=== PATIENT | female | born 1970 | race Caucasian/White ===

== ENCOUNTER 2024-09-19 17:39 | Emergency (ER) | payer OTHER, SELFPAY ==
--- NOTE | ~2024-09-19 | CT_ITS ---
EXAMINATION: CT ANGIOGRAM OF THE CHEST, ABDOMEN AND PELVIS WITHOUT AND WITH CONTRAST CLINICAL INFORMATION: Abdominal pain COMPARISON: None. TECHNIQUE: Multidetector volumetric CT imaging of the chest, abdomen, and pelvis was performed before and after the administration of 50 mL of Omnipaque 350 intravenous contrast without immediate adverse reactions. 3D POSTPROCESSING: Multiple 3-D angiographic images were processed from the initial data set by the [facility] on an independent workstation under concurrent physician supervision. DOSE LOWERING TECHNIQUES: This CT examination was performed using dose optimization techniques as appropriate, variously including the following: - Automated exposure control - Adjustment of mA and/or kV according to patient size (this includes techniques or standardized protocols for targeted exams where dose is matched to indication/reason for exam; i.e. extremities or head) - Use of iterative reconstruction technique DLP: 858 mGy-cm. FINDINGS: VASCULAR: AORTA: Normal in caliber, no dissection or aneurysm. CELIOMESENTERIC ARTERIES: Patent RENAL ARTERIES: Patent RIGHT ILIOFEMORAL ARTERIES: Patent LEFT ILIOFEMORAL ARTERIES: Patent NONVASCULAR: LUNGS: Left lower lobe consolidation and tree in bud opacities. MEDIASTINUM: The mediastinum is normal. PLEURA: There is no pleural effusion. No pleural mass or thickening. LIVER, GALLBLADDER, AND BILIARY TREE: The liver is normal in size, shape, and attenuation. No focal hepatic lesion or biliary ductal dilatation is present. The gallbladder is unremarkable with no evidence of radiopaque gallstones, gallbladder wall thickening, or obvious pericholecystic inflammatory changes. PANCREAS: Unremarkable. SPLEEN: Unremarkable. ADRENAL GLANDS: Unremarkable. KIDNEYS AND URETERS: The kidneys are normal in size, shape, and attenuation. No hydronephrosis, hydroureter, or calculi seen. No perinephric stranding. BLADDER: Unremarkable. GASTROINTESTINAL TRACT: The small and large bowel are unremarkable. The appendix is unremarkable. ABDOMINAL WALL: No significant hernia is appreciated. LYMPH NODES: Normal. PELVIC VISCERA: Unremarkable. OSSEOUS STRUCTURES: Unremarkable. CT/CT angio chest aorta IMPRESSION: No significant abnormality. Fleischner guidelines were followed. Electronically signed by: Jeannine Spicer MD 09/19/2024 08:42 PM EDT
--- NOTE | ~2024-09-19 | CT_ITS ---
EXAMINATION: CT ANGIOGRAM OF THE CHEST, ABDOMEN AND PELVIS WITHOUT AND WITH CONTRAST CLINICAL INFORMATION: Abdominal pain COMPARISON: None. TECHNIQUE: Multidetector volumetric CT imaging of the chest, abdomen, and pelvis was performed before and after the administration of 50 mL of Omnipaque 350 intravenous contrast without immediate adverse reactions. 3D POSTPROCESSING: Multiple 3-D angiographic images were processed from the initial data set by the [facility] on an independent workstation under concurrent physician supervision. DOSE LOWERING TECHNIQUES: This CT examination was performed using dose optimization techniques as appropriate, variously including the following: - Automated exposure control - Adjustment of mA and/or kV according to patient size (this includes techniques or standardized protocols for targeted exams where dose is matched to indication/reason for exam; i.e. extremities or head) - Use of iterative reconstruction technique DLP: 858 mGy-cm. FINDINGS: VASCULAR: AORTA: Normal in caliber, no dissection or aneurysm. CELIOMESENTERIC ARTERIES: Patent RENAL ARTERIES: Patent RIGHT ILIOFEMORAL ARTERIES: Patent LEFT ILIOFEMORAL ARTERIES: Patent NONVASCULAR: LUNGS: Left lower lobe consolidation and tree in bud opacities. MEDIASTINUM: The mediastinum is normal. PLEURA: There is no pleural effusion. No pleural mass or thickening. LIVER, GALLBLADDER, AND BILIARY TREE: The liver is normal in size, shape, and attenuation. No focal hepatic lesion or biliary ductal dilatation is present. The gallbladder is unremarkable with no evidence of radiopaque gallstones, gallbladder wall thickening, or obvious pericholecystic inflammatory changes. PANCREAS: Unremarkable. SPLEEN: Unremarkable. ADRENAL GLANDS: Unremarkable. KIDNEYS AND URETERS: The kidneys are normal in size, shape, and attenuation. No hydronephrosis, hydroureter, or calculi seen. No perinephric stranding. BLADDER: Unremarkable. GASTROINTESTINAL TRACT: The small and large bowel are unremarkable. The appendix is unremarkable. ABDOMINAL WALL: No significant hernia is appreciated. LYMPH NODES: Normal. PELVIC VISCERA: Unremarkable. OSSEOUS STRUCTURES: Unremarkable. CT/CT angio abdomen pelvis IMPRESSION: No significant abnormality. Fleischner guidelines were followed. Electronically signed by: Jeannine Spicer MD 09/19/2024 08:42 PM EDT
--- NOTE | 2024-09-19 17:43 | ECG_ITS ---
Test Reason : chest pain Blood Pressure : / mmHG Vent. Rate : 072 BPM Atrial Rate : 072 BPM P-R Int : 136 ms QRS Dur : 086 ms QT Int : 358 ms P-R-T Axes : -16 002 028 degrees QTc Int : 392 ms Poor data quality Normal sinus rhythm with sinus arrhythmia Low voltage QRS Borderline ECG No previous ECGs available Referred By: Generic ED Physician Electronically Signed By:Christo Phoenix
[2024-09-19 17:50] VITALS: BP 180/93; PULSE 96; RESP 25; TEMP 36.9; O2SAT 95; BMI 39.5
[2024-09-19 18:06] LABS: MANUAL DIFF FLAG NO
[2024-09-19 18:08] LABS: Basophils Percent Auto 0.3 % (0-2); Hematocrit 42.8 % (37.0-47.0); Hemoglobin 14.8 g/dl (12.0-16.0); Imm Gran Abs Auto 0.05 X10*3/uL (0.00-0.03); Imm Gran Pct Auto 0.4 % (0.0-0.4); Lymphocytes Absolute Auto 2.2 X10*3/uL (1.2-4.9); Lymphocytes Percent Auto 18.6 % (20-40); Mean Corpuscular HGB Conc 34.6 g/dl (31.0-35.0); Mean Corpuscular Hemoglobin 29.9 pg (27.0-33.0); Mean Corpuscular Volume 86.5 fL (80.0-98.0); Mean Platelet Volume 8.9 fL (9.4-12.3); Monocytes Absolute Auto 1.1 X10*3/uL (0.1-1.2); Monocytes Percent Auto 9.7 % (2-11); Neutrophils Absolute Auto 8.3 x10*3/uL (2.0-8.3); Platelet Count 537 X10*3/uL (160-400); Red Blood Count 4.95 X10*6/uL (4.20-5.50); Red Cell Distribution Width 13.7 % (11.0-16.0); White Blood Count 11.7 X10*3/uL (4.8-10.8)
[2024-09-19] MEDS: Morphine Sulfate 4 MG/ML CARTRIDGE IVPUSH ×2 (18:25→21:33)
[2024-09-19 18:29] LABS: Anion Gap 18 (12-20)
--- NOTE | 2024-09-19 18:31 | PC.NURSE ---
patient presents via ems. patient is diaphoretic states she is having sub sternal chest pain that radiates to her neck and back. patient states that the pain makes her right leg cramp and feel numb. IV started in the patients right FA 20#, provider notified, medicated per MAR.
[2024-09-19 18:35] LABS: Alanine Aminotransferase 34 U/L (0-31); Albumin Level 4.6 g/dL (3.5-5.0); Alkaline Phosphatase 112 U/L (39-117); Aspartate Amino Transferase 29 U/L (5-31); Bilirubin Total 0.4 mg/dL (0.0-1.0); Blood Urea Nitrogen 17 mg/dL (9-16); Calcium 9.9 mg/dL (8.4-10.2); Carbon Dioxide 18 mmol/L (22-29); Chloride 105 mmol/L (96-108); Creatinine Clr Calc Pharmacy 102.5; Estimated Glomerular Filt Rate > 60; Ethanol < 10 mg/dL; Glucose Random 99 mg/dL (60-115); Lipase 41 U/L (8-78); Potassium 4.5 mmol/L (3.3-5.1); Sodium 136 mmol/L (135-145); Total Protein 7.7 g/dL (6.5-8.0); Troponin-I High Sensitivity < 2.7 ng/L (<3.5-17.0)
[2024-09-19 18:52] LABS: Lactic Acid 1.1 mmol/L (0.5-2.0)
[2024-09-19] MEDS: iohexoL 350 MG/ML 100 ML INFUS..BTL IV (18:54)
[2024-09-19 19:30] VITALS: BP 156/82; PULSE 70; RESP 20; TEMP 36.9; O2SAT 97
--- NOTE | 2024-09-19 19:30 | MHC.EDTECH ---
This tech took over care o0f patient at 1900,rounded and introduced self to patient,vitals taken,patient ambulated to the bathroom with a steady gait,urine sample collected and sent to lab, visitor at bedside call hawkins in reach
--- NOTE | 2024-09-19 19:33 | ED_ITS ---
HPI - Chest Pain General Chief Complaint: Chest Pain Stated Complaint: chest pain radiating to L arm and jaw Time Seen by Provider: 09/19/24 18:04 History of Present Illness ED Provider: Hadyen KISER narrative: 53-year-old male with past medical history of rheumatoid arthritis presenting for sudden onset severe chest pain. Patient states that just prior to coming to the emergency department she began experiencing chest pain that radiates to her back. She also endorses diaphoresis, shortness of breath and lower extremity numbness stating that the back of her legs feel numb. She denies trauma, nausea, vomiting, urinary symptoms. She has never had this type of pain in the past. She states that last week she received an infusion for her rheumatoid arthritis. Related Data Allergies Allergy/AdvReac Type Severity Reaction Status Date / Time Gadolinium-Containing Allergy Unknown Verified 09/19/24 17:52 Contrast Medi latex Allergy Unknown Verified 09/19/24 17:52 Review of Systems 2 Review of Systems: Patient endorses chest pain, shortness of breath, back pain, leg numbness Yes all other systems are reviewed and are negative FORMERLY [facility], [facility] Social History Social History Advance Directives: No Advance Directives Information Provided: Yes Do you have a plan to hurt others: No Plan Physical Exam 2 Vital Signs: Vital Signs: Last Vital Signs Temp 98.2 F 09/19/24 23:29 Pulse 84 09/19/24 23:29 Resp 16 09/19/24 23:29 BP 133/65 09/19/24 23:29 Pulse Ox 95 09/19/24 23:29 O2 Del Method Room Air 09/19/24 23:29 BMI result Body Mass Index 39.5 Patient appears to be in distress Lungs clear to auscultation bilaterally Normal S1-S2 regular rate and rhythm Sternal chest wall tenderness to palpation Bedside echo negative for enlarged aortic root Abdomen is soft, nondistended with mild epigastric tenderness to palpation No focal neurologic deficits appreciated; strength sensation equal in bilateral lower extremities with good DP pulses Course Course Course Narrative: 09/20/2024 11:47 Addendum: Received telephone call from patient expressing concern regarding results of her CT a chest obtained at visit yesterday, 09/19. Patient states she presented to the emergency department with complaint of chest pain and shortness of breath. CT report notes left lower lobe consolidation with tree in bud opacities. Patient stating she has had cough and symptoms consistent with pneumonia. Will send prescription for azithromycin to pharmacy. Discussed with patient that she will need to follow-up with her PCP for repeat chest x-ray to ensure resolution of pneumonia. Medications Administered Discontinued Medications Generic Name Dose Route Start Last Admin Trade Name Jack PRN Reason Stop Dose Admin Iohexol 100 ml 09/19/24 18:53 09/19/24 18:54 Iohexol 350 Mg/Ml 100 Ml Infus..Btl IV 09/19/24 18:54 100 ml ONCE ONE Administration Morphine Sulfate 4 mg 09/19/24 18:20 09/19/24 18:25 Morphine Sulfate 4 Mg/Ml Cartridge IVPUSH 09/19/24 18:21 4 mg ONCE ONE Administration Protocol Morphine Sulfate 4 mg 09/19/24 21:18 09/19/24 21:33 Morphine Sulfate 4 Mg/Ml Cartridge IVPUSH 09/19/24 21:19 4 mg ONCE ONE Administration Protocol Medical Decision Making Medical Decision Making MDM Narrative: This is a 53-year-old female presenting for chest pain. I am concerned for the following; aortic dissection, pancreatitis, cholelithiasis, cholecystitis, PUD -low risk for PE per Wells score -labs and imaging studies ordered -I do not appreciate dissection on the patient's CT aorta imaging and radiologist's interpretation is negative for dissection -lab work notable for H&H within normal limits and mild leukocytosis, normal electrolytes, normal LFTs, normal creatinine negative troponins x2 -unclear etiology for patient's chest pain however I have no suspicions for pulmonary embolism, ACS, aortic dissection, tension pneumothorax -on reassessment patient reports improvement in symptoms and would like to be discharged home. I instructed her follow up with outpatient providers and gave her return precautions Differential Diagnosis Differential Diagnoses: The differential diagnosis associated with the presentation includes Aortic dissection, pancreatitis, cholelithiasis, cholecystitis, PUD, muscular cramping, Lab Data 09/19/24 18:03 09/19/24 18:03 Labs: Lab Results 09/19/24 09/19/24 09/19/24 Range/Units 18:03 18:35 19:41 WBC 11.7 H (4.8-10.8) X10*3/uL RBC 4.95 (4.20-5.50) X10*6/uL Hgb 14.8 (12.0-16.0) g/dl Hct 42.8 (37.0-47.0) % MCV 86.5 (80.0-98.0) fL MCH 29.9 (27.0-33.0) pg MCHC 34.6 (31.0-35.0) g/dl RDW 13.7 (11.0-16.0) % Plt Count 537 H (160-400) X10*3/uL MPV 8.9 L (9.4-12.3) fL Immature Gran % (Auto) 0.4 (0.0-0.4) % Neut % (Auto) 71.0 (45-73) % Lymph % (Auto) 18.6 L (20-40) % [place] % (Auto) 9.7 (2-11) % Eos % (Auto) 0.0 (0-4) % Baso % (Auto) 0.3 (0-2) % Lymph # (Auto) 2.2 (1.2-4.9) X10*3/uL [place] # (Auto) 1.1 (0.1-1.2) X10*3/uL Eos # (Auto) 0.0 (0.0-0.4) X10*3/uL Baso # (Auto) 0.0 (0.0-0.2) X10*3/uL Abs Immat Gran (auto) 0.05 H (0.00-0.03) X10*3/uL Absolute Neuts (auto) 8.3 (2.0-8.3) x10*3/uL Absolute Nucleated RBC 0.000 (0.0-0.012) X10*3/uL Nucleated RBC % (auto) 0.0 (0.0-0.2) /100WBC Sodium 136 (135-145) mmol/L Potassium 4.5 (3.3-5.1) mmol/L Chloride 105 (96-108) mmol/L Carbon Dioxide 18 L (22-29) mmol/L Anion Gap 18 (12-20) BUN 17 H (9-16) mg/dL Creatinine 0.73 (0.5-1.4) mg/dL Estim Creat Clear Calc 102.5 Estimated GFR > 60 Random Glucose 99 (60-115) mg/dL Lactic Acid 1.1 (0.5-2.0) mmol/L Calcium 9.9 (8.4-10.2) mg/dL Magnesium (1.6-2.6) mg/dL Total Bilirubin 0.4 (0.0-1.0) mg/dL AST 29 (5-31) U/L ALT 34 H (0-31) U/L Alkaline Phosphatase 112 (39-117) U/L Troponin I High Sens < 2.7 (<3.5-17.0) ng/L Total Protein 7.7 (6.5-8.0) g/dL Albumin 4.6 (3.5-5.0) g/dL Lipase 41 (8-78) U/L TSH (0.32-4.0) uIU/mL Urine Color Yellow Urine Appearance Clear Urine pH 7.0 (5.0-9.0) Ur Specific [place] 1.020 (1.005-1.025) Urine Protein Negative (Neg-Trace) mg/dL Urine Glucose (UA) Negative (Negative) mg/dL Urine Ketones Negative (Negative) mg/dL Urine Blood Negative (Negative) Urine Nitrite Negative (Negative) Ur Leukocyte Esterase Negative (Negative) Ethyl Alcohol < 10 mg/dL Blood Type O Positive Antibody Screen NEGATIVE 09/19/24 Range/Units 22:35 WBC (4.8-10.8) X10*3/uL RBC (4.20-5.50) X10*6/uL Hgb (12.0-16.0) g/dl Hct (37.0-47.0) % MCV (80.0-98.0) fL MCH (27.0-33.0) pg MCHC (31.0-35.0) g/dl RDW (11.0-16.0) % Plt Count (160-400) X10*3/uL MPV (9.4-12.3) fL Immature Gran % (Auto) (0.0-0.4) % Neut % (Auto) (45-73) % Lymph % (Auto) (20-40) % [place] % (Auto) (2-11) % Eos % (Auto) (0-4) % Baso % (Auto) (0-2) % Lymph # (Auto) (1.2-4.9) X10*3/uL [place] # (Auto) (0.1-1.2) X10*3/uL Eos # (Auto) (0.0-0.4) X10*3/uL Baso # (Auto) (0.0-0.2) X10*3/uL Abs Immat Gran (auto) (0.00-0.03) X10*3/uL Absolute Neuts (auto) (2.0-8.3) x10*3/uL Absolute Nucleated RBC (0.0-0.012) X10*3/uL Nucleated RBC % (auto) (0.0-0.2) /100WBC Sodium (135-145) mmol/L Potassium (3.3-5.1) mmol/L Chloride (96-108) mmol/L Carbon Dioxide (22-29) mmol/L Anion Gap (12-20) BUN (9-16) mg/dL Creatinine (0.5-1.4) mg/dL Estim Creat Clear Calc Estimated GFR Random Glucose (60-115) mg/dL Lactic Acid (0.5-2.0) mmol/L Calcium (8.4-10.2) mg/dL Magnesium 2.1 (1.6-2.6) mg/dL Total Bilirubin (0.0-1.0) mg/dL AST (5-31) U/L ALT (0-31) U/L Alkaline Phosphatase (39-117) U/L Troponin I High Sens < 2.7 (<3.5-17.0) ng/L Total Protein (6.5-8.0) g/dL Albumin (3.5-5.0) g/dL Lipase (8-78) U/L TSH 3.19 (0.32-4.0) uIU/mL Urine Color Urine Appearance Urine pH (5.0-9.0) Ur Specific [place] (1.005-1.025) Urine Protein (Neg-Trace) mg/dL Urine Glucose (UA) (Negative) mg/dL Urine Ketones (Negative) mg/dL Urine Blood (Negative) Urine Nitrite (Negative) Ur Leukocyte Esterase (Negative) Ethyl Alcohol mg/dL Blood Type Antibody Screen Scores [place] DVT Alternative Dx as likely as or more likely than DVT: -2 Score: -2 2-tier Risk: unlikely risk (5%) 3-tier Risk: low risk (3%) Discharge Plan Discharge Clinical Impression: Chest pain Patient Disposition: Home, Self-Care Additional Instructions: Please follow up with your primary care provider within the next 24-48 hours If you develop any new or worsening symptoms please return to the emergency department Interventions: ED Discharge Assessment Last Done: 09/19/24 23:29 Discharge Date/Time: 09/19/24 23:29 Print Language: Senegalese
[2024-09-19 19:46] LABS: Appearance Urine Clear; Color Urine Yellow; Glucose Urine UA Negative (Negative); Leukocyte Esterase Urine Negative (Negative); Nitrite Urine Negative (Negative); Urine Blood Negative (Negative); Urine Ketones Negative (Negative); Urine Protein Negative (Neg-Trace)
[2024-09-19 21:47] VITALS: BP 154/78; PULSE 83; RESP 18; TEMP 36.7; O2SAT 98
--- NOTE | 2024-09-19 22:36 | MHC.EDTECH ---
Labs drawn at this time,sent to lab
[2024-09-19 23:03] LABS: Magnesium 2.1 mg/dL (1.6-2.6)
[2024-09-19 23:04] LABS: Troponin-I High Sensitivity < 2.7 ng/L (<3.5-17.0)
[2024-09-19 23:15] VITALS: BP 133/65; PULSE 69; PULSE 84; RESP 16; TEMP 36.8; O2SAT 95; O2SAT 97
--- NOTE | 2024-09-19 23:16 | MHC.EDTECH ---
Walking ambulation trial per providers request ,O2 sat 95% ,HR of 84,patient has a steady gait,tolerated well,RN made aware
[2024-09-19 23:17] LABS: TSH reflex Free T4 3.19 uIU/mL (0.32-4.0)
[2024-09-19 23:29] VITALS: BP 133/65; PULSE 84; RESP 16; TEMP 36.8; O2SAT 95
== END 2024-09-19 23:29 | disposition home or self-care (01) ==
PROVIDERS: Emergency Provider Student in an Organized Health Care Education/Training Program
DX: R07.9 Chest pain, unspecified (principal); R06.02 Shortness of breath; R20.0 Anesthesia of skin; R10.9 Unspecified abdominal pain
CPT/HCPCS: 36415; 71275; 74174; 80053; 80307; 81003; 83605; 83690; 83735; 84443; 84484; 85025; 86850; 86900; 86901; 93005; 96374; 96376; 99284; 99285; J2270; Q9967

== ENCOUNTER → 2024-09-19 17:43 | Outpatient (BNV) | payer OTHER, SELFPAY | PROVIDERS: Emergency Provider Student in an Organized Health Care Education/Training Program; Visit Provider Internal Medicine Cardiovascular Disease | DX: R07.9 Chest pain, unspecified (principal); R06.02 Shortness of breath | CPT/HCPCS: 93010 ==

== ENCOUNTER 2024-09-21 08:40 | Emergency (ER) | payer OTHER, SELFPAY ==
--- NOTE | ~2024-09-21 | XR_ITS ---
EXAMINATION: XR CHEST CLINICAL INFORMATION: Cough. Chest pain. COMPARISON: None available. TECHNIQUE: 2 views of the chest were obtained. FINDINGS: No consolidation, pleural effusion or pneumothorax. Cardiomediastinal silhouette is normal in size. Osseous structures are intact. XR/XR chest 2V IMPRESSION: No acute airspace disease. Electronically signed by: Devan Ashton MD 09/21/2024 10:23 AM EDT
--- NOTE | 2024-09-21 08:44 | ECG_ITS ---
Test Reason : chest pain/ sob Blood Pressure : / mmHG Vent. Rate : 074 BPM Atrial Rate : 074 BPM P-R Int : 144 ms QRS Dur : 088 ms QT Int : 392 ms P-R-T Axes : 006 000 031 degrees QTc Int : 435 ms Normal sinus rhythm Low voltage QRS Borderline ECG When compared with ECG of 19-SEP-2024 17:46, No significant change was found Referred By: Generic ED Physician Electronically Signed By:Christo Phoenix
[2024-09-21 08:50] VITALS: BP 135/71; PULSE 71; RESP 18; TEMP 36.9; O2SAT 100; BMI 38.8
--- NOTE | 2024-09-21 09:23 | ED_ITS ---
HPI - Chest Pain General Chief Complaint: Chest Pain Stated Complaint: chest pain Time Seen by Provider: 09/21/24 09:09 Source: patient Mode of arrival: ambulatory Limitations: no limitations History of Present Illness ED Provider: Merlene Kevin PA-C HPI narrative: 53 yo female with history of RA on Rituxan infusions presents to the ER for evaluation of worsening chest pains, SOB, whole body cramping after being seen here on 09/19 for chest pain. She had a CTA done showing no significant abnormality and an unremarkable cardiac workup. She was discharged. She went through the imaging when she got home and noticed in the pulmonary section there was a comment about left lower lobe consolidation. She called and spoke with staff yesterday who called her in a Z-pack for pneumonia. She took 500 mg yesterday and 250 mg today. She reports last night she was having ongoing pain in the chest like someone is sitting on her chest. She has intermittent cramping pains all over her body except her arms. She reports pain at rest and with coughing. She has had episodes of diaphoresis but unknown if she had a fever or not. She has an inhaler but was told not to use it. MD complaint: chest pain and other (SOB) Pertinent past history: other (immunocompromised) Onset (ago): day(s) Timing of current episode: constant Prior episodes: Yes Onset: during rest Pain location: left chest and right chest Pain radiation: back Severity: severe Quality: heaviness Relieving factors: nothing Exacerbating factors: inspiration and movement Context: recent illness Associated symptoms: diaphoresis, dyspnea and cough Treatment prior to arrival: none Risk Factors Coronary artery disease risk factors: none Thoracic aortic dissection risk factors: none Related Data Previous Rx's ?Medication ?Instructions ?Recorded azithromycin 250 mg tablet See Rx Instructions PO .COMPLEX #6 09/20/24 tabs cefpodoxime 200 mg tablet 200 mg PO BID #12 tabs 09/21/24 cyclobenzaprine 10 mg tablet 10 mg PO Q12H PRN muscle spasm #10 09/21/24 tabs oxycodone 5 mg tablet 5 mg PO Q8H PRN severe pain (scale 09/21/24 score 7-10) #5 tabs Allergies Allergy/AdvReac Type Severity Reaction Status Date / Time Gadolinium-Containing Allergy Unknown Verified 09/21/24 08:53 Contrast Medi latex Allergy Unknown Verified 09/21/24 08:53 Review of Systems 2 Review of Systems: Yes all other systems are reviewed and are negative [facility] Social History Social History Alcohol intake: never Physical Exam 2 Vital Signs: Vital Signs: Last Vital Signs Temp 98.1 F 09/21/24 12:24 Pulse 64 09/21/24 12:24 Resp 18 09/21/24 12:24 BP 119/61 09/21/24 12:24 Pulse Ox 98 09/21/24 12:24 O2 Del Method Room Air 09/21/24 12:24 BMI result Body Mass Index 38.8 Appearance: Alert. Oriented X3. Appears uncomfortable. Head: normocephalic, atraumatic. Eyes: Pupils equal, round and reactive to light. ENT: Pharynx normal. No tonsillar swelling or exudate. Neck: Normal inspection. Neck supple. CVS: Normal heart rate and rhythm. Pulses normal. Respiratory: No respiratory distress. Breath sounds diminished at bilateral bases, pain w/ deep inspiration Abdomen: Soft and nontender. +BS x4 Skin: Skin warm and dry. Normal skin color. Normal skin turgor. No rashes. Extremities: No lower extremity edema. No joint swelling. Neuro/psych: Oriented X 3. No motor deficit. No sensory deficit. CN II-XII intact. Normal speech and cognition. Medications Administered Discontinued Medications Generic Name Dose Route Start Last Admin Trade Name Angelq PRN Reason Stop Dose Admin Albuterol/Ipratropium 3 ml 09/21/24 09:42 09/21/24 09:47 Albuterol/Iprat 2.5/0.5mg 3 Ml Ampul.Neb INHALE 09/21/24 09:43 3 ml ONCE ONE Administration Ceftriaxone Sodium 1 gm 09/21/24 09:23 09/21/24 09:53 Ceftriaxone Sodium 1 Gm Vial IVPUSH 09/21/24 09:24 1 gm ONCE ONE Administration Guaifenesin 1,200 mg 09/21/24 09:21 09/21/24 09:52 Guaifenesin La 600 Mg Tab.Er.12h PO 09/21/24 09:22 1,200 mg ONCE ONE Administration Hydromorphone HCl 1 mg 09/21/24 10:43 09/21/24 10:50 Hydromorphone Hcl 1 Mg/Ml Syringe IVPUSH 09/21/24 10:44 1 mg ONCE ONE Administration Protocol Ketorolac Tromethamine 15 mg 09/21/24 09:21 09/21/24 09:52 Ketorolac Tromethamine 15 Mg/Ml Vial IVPUSH 09/21/24 09:22 15 mg ONCE ONE Administration Morphine Sulfate 4 mg 09/21/24 09:21 09/21/24 09:52 Morphine Sulfate 4 Mg/Ml Cartridge IVPUSH 09/21/24 09:22 4 mg ONCE ONE Administration Protocol Medical Decision Making Medical Decision Making [facility] Narrative: 53-year-old female with history of RA, immunocompromised who presents to the ER for re-evaluation of ongoing chest pain, shortness of breath, muscle spasms. CT scan done 2 days ago showing a left lower lobe tree-in-bud opacities concerning for pneumonia. She was started on azithromycin and took 2 doses. She has ongoing symptoms. On arrival to the ER she has stable vital signs. Her exam is largely unremarkable aside from the fact that she is uncomfortable and in pain. IV was established she was given IV morphine and Toradol. He had minimal response to this and was still complaining of significant pain in her back and chest. Considered repeat CT scan however this was just done 2 days ago. Low suspicion for dissection. She is coughing and having decreased breath sounds so ED bronch protocol was ordered along with mucolytics. IV Dilaudid was given for ongoing pain Upon re-evaluation after 2nd call round of narcotics and bronchodilator patient was feeling much better. She continued to be hemodynamically stable and saturating well on room air. Chest x-ray did not show any focal infiltrate but given her recent CT scan findings will treat for community-acquired pneumonia with the addition of a cephalosporin. At this time patient is stable for discharge home with addition of a 2nd antibiotic, pain control, return precautions were discussed. Stable for DC. Differential Diagnosis Differential Diagnoses: The differential diagnosis associated with the presentation includes Pneumonia, costochondritis, ACS, PE, dissection Admission/Observation Consideration of admission/observation: Escalation of care including admission/observation considered 2nd visit Lab Data [facility] Lab Attestation statement: I reviewed the patient's lab results. No leukocytosis, no major metabolic derangement, negative troponin 09/21/24 09:48 09/21/24 09:48 Labs: Lab Results 10/25/24 10/25/24 10/25/24 Range/Units 09:47 09:48 12:04 WBC 8.4 (4.8-10.8) X10*3/uL RBC 4.45 (4.20-5.50) X10*6/uL Hgb 13.2 (12.0-16.0) g/dl Hct 38.6 (37.0-47.0) % MCV 86.7 (80.0-98.0) fL MCH 29.7 (27.0-33.0) pg MCHC 34.2 (31.0-35.0) g/dl RDW 13.8 (11.0-16.0) % Plt Count 433 H (160-400) X10*3/uL MPV 9.0 L (9.4-12.3) fL Immature Gran % (Auto) 0.5 H (0.0-0.4) % Neut % (Auto) 68.9 (45-73) % Lymph % (Auto) 15.9 L (20-40) % [place] % (Auto) 13.2 H (2-11) % Eos % (Auto) 1.1 (0-4) % Baso % (Auto) 0.4 (0-2) % Lymph # (Auto) 1.3 (1.2-4.9) X10*3/uL [place] # (Auto) 1.1 (0.1-1.2) X10*3/uL Eos # (Auto) 0.1 (0.0-0.4) X10*3/uL Baso # (Auto) 0.0 (0.0-0.2) X10*3/uL Abs Immat Gran (auto) 0.04 H (0.00-0.03) X10*3/uL Absolute Neuts (auto) 5.8 (2.0-8.3) x10*3/uL Absolute Nucleated RBC 0.000 (0.0-0.012) X10*3/uL Nucleated RBC % (auto) 0.0 (0.0-0.2) /100WBC ESR 16 (0-20) MM/HR Sodium 136 (135-145) mmol/L Potassium 3.8 (3.3-5.1) mmol/L Chloride 105 (96-108) mmol/L Carbon Dioxide 22 (22-29) mmol/L Anion Gap 13 (12-20) BUN 19 H (9-16) mg/dL Creatinine 0.74 (0.5-1.4) mg/dL Estim Creat Clear Calc 100.1 Estimated GFR > 60 Random Glucose 89 (60-115) mg/dL Calcium 9.0 D (8.4-10.2) mg/dL Magnesium 2.0 (1.6-2.6) mg/dL Total Bilirubin 0.3 (0.0-1.0) mg/dL Direct Bilirubin 0.1 (0.0-0.5) mg/dL AST 25 (5-31) U/L ALT 35 H (0-31) U/L Alkaline Phosphatase 101 (39-117) U/L Troponin I High Sens < 2.7 (<3.5-17.0) ng/L C-Reactive Protein 1.38 H (< or = 0.50) mg/dL Total Protein 6.5 (6.5-8.0) g/dL Albumin 4.0 (3.5-5.0) g/dL Urine Color Yellow Urine Appearance Clear Urine pH 7.0 (5.0-9.0) Ur Specific [place] 1.010 (1.005-1.025) Urine Protein Negative (Neg-Trace) mg/dL Urine Glucose (UA) Negative (Negative) mg/dL Urine Ketones Negative (Negative) mg/dL Urine Blood Negative (Negative) Urine Nitrite Negative (Negative) Ur Leukocyte Esterase Negative (Negative) Influenza Type A (PCR) NEGATIVE (Negative) Influenza Type B (PCR) NEGATIVE (Negative) RSV RNA Qual (PCR) NEGATIVE (Negative) SARS-CoV-2 RNA (RT-PCR) NEGATIVE (Negative) Independent Interpretation I performed an independent interpretation of an: EKG and Plain X-Ray Interpretation: Chest x-ray without any lobar opacities EKG with normal sinus rhythm, ventricular rate 74 beats per minute, low voltage QRS without any ST segment elevations or depressions. Radiology Impression Discussion of test interpretation with radiology: I have reviewed the radiologist's reading. Independent Historian Clinical information obtained from an independent historian. History obtained from or confirmed by: Other (mother ) External Record Review External record reviewed: Prior outpatient labs and Prior outpatient radiology Tests considered The following testing was considered but not selected: repeat CTA considered Prescription Management I considered prescription management with: Pain Medication and Antibiotic Chronic Conditions Patient?s care impacted by: Other (RA, immunocompromised ) Critical Care Time Critical Care Time Critical Care Time: Yes Total Critical Care Time: 32 Attestation: I have personally provided critical care time exclusive of time spent on separately billable procedures. Time includes review of lab data, radiology results, bedside re-evaluation after multiple doses of IV narcotic administration, and monitoring for potential decompensation. Intervention performed as documented. Discharge Plan Discharge Clinical Impression: Acute costochondritis Pneumonia Qualifiers: Pneumonia type: due to unspecified organism Laterality: unspecified laterality Lung location: unspecified part of lung Qualified Code(s): J18.9 - Pneumonia, unspecified organism Patient Disposition: Home, Self-Care Instructions: Community Acquired Pneumonia (DC) Additional Instructions: Your lab workup, EKG and x-ray today were all reassuring. Take the prescribed antibiotic as directed, start this tomorrow as your given 1st dose of IV antibiotics in the emergency department today. Continue the previously prescribed azithromycion Rest and drink plenty of fluids. Take the prescribed muscle relaxer and oxycodone as needed for cramping and severe pain. Recommend alternating doses of Tylenol and NSAID like ibuprofen or Aleve Follow-up with your doctorIf you develop new or worsening symptoms call 911 or come back to the ER for further evaluation. Prescriptions: New cefpodoxime 200 mg tablet 200 mg PO BID Qty: 12 0RF Rx Instructions: must administer with a meal/food cyclobenzaprine 10 mg tablet 10 mg PO Q12H PRN (Reason: muscle spasm) Qty: 10 0RF oxycodone 5 mg tablet 5 mg PO Q8H PRN (Reason: severe pain (scale score 7-10)) Qty: 5 0RF Rx Instructions: Partial Fill upon patient request. No Action azithromycin 250 mg tablet See Rx Instructions .ROUTE .COMPLEX Qty: 6 0RF Rx Instructions: For 250 mg dose pack: take 500 mg today (day 1), then 250 mg for 4 days (days 2-5) Interventions: ED Discharge Assessment Last Done: 09/21/24 12:24 Discharge Date/Time: 09/21/24 12:24 Print Language: Romanian
[2024-09-21 09:42] VITALS: PULSE 70; RESP 16; O2SAT 97
[2024-09-21] MEDS: Albuterol/Iprat 2.5/0.5MG 3 ML AMPUL.NEB INHALE (09:47)
[2024-09-21 09:52] LABS: MANUAL DIFF FLAG NO
[2024-09-21] MEDS: guaiFENesin LA 600 MG TAB.ER.12H 1200 MG PO (09:52)
[2024-09-21] MEDS: Ketorolac Tromethamine 15 MG/ML VIAL IVPUSH (09:52)
[2024-09-21] MEDS: Morphine Sulfate 4 MG/ML CARTRIDGE IVPUSH (09:52)
[2024-09-21 09:53] LABS: Basophils Percent Auto 0.4 % (0-2); Eosinophils Absolute Auto 0.1 X10*3/uL (0.0-0.4); Eosinophils Percent Auto 1.1 % (0-4); Hematocrit 38.6 % (37.0-47.0); Hemoglobin 13.2 g/dl (12.0-16.0); Imm Gran Abs Auto 0.04 X10*3/uL (0.00-0.03); Imm Gran Pct Auto 0.5 % (0.0-0.4); Lymphocytes Absolute Auto 1.3 X10*3/uL (1.2-4.9); Lymphocytes Percent Auto 15.9 % (20-40); Mean Corpuscular HGB Conc 34.2 g/dl (31.0-35.0); Mean Corpuscular Hemoglobin 29.7 pg (27.0-33.0); Mean Corpuscular Volume 86.7 fL (80.0-98.0); Monocytes Absolute Auto 1.1 X10*3/uL (0.1-1.2); Monocytes Percent Auto 13.2 % (2-11); Neutrophils Absolute Auto 5.8 x10*3/uL (2.0-8.3); Neutrophils Percent Auto 68.9 % (45-73); Platelet Count 433 X10*3/uL (160-400); Red Blood Count 4.45 X10*6/uL (4.20-5.50); Red Cell Distribution Width 13.8 % (11.0-16.0); White Blood Count 8.4 X10*3/uL (4.8-10.8)
[2024-09-21] MEDS: cefTRIAXone sodium 1 GM VIAL IVPUSH (09:53)
[2024-09-21 10:09] LABS: Alanine Aminotransferase 35 U/L (0-31); Alkaline Phosphatase 101 U/L (39-117); Anion Gap 13 (12-20); Aspartate Amino Transferase 25 U/L (5-31); Bilirubin Direct 0.1 mg/dL (0.0-0.5); Bilirubin Total 0.3 mg/dL (0.0-1.0); Blood Urea Nitrogen 19 mg/dL (9-16); C Reactive Protein 1.38 mg/dL (< or = 0.50); Carbon Dioxide 22 mmol/L (22-29); Chloride 105 mmol/L (96-108); Creatinine Clr Calc Pharmacy 100.1; Estimated Glomerular Filt Rate > 60; Glucose Random 89 mg/dL (60-115); Potassium 3.8 mmol/L (3.3-5.1); Sodium 136 mmol/L (135-145); Total Protein 6.5 g/dL (6.5-8.0)
[2024-09-21 10:21] LABS: Troponin-I High Sensitivity < 2.7 ng/L (<3.5-17.0)
[2024-09-21 10:29] LABS: Influenza A PCR NEGATIVE (Negative); Influenza B PCR NEGATIVE (Negative); Resp Syncy Virus RNA Qual PCR NEGATIVE (Negative); SARS COV2 PCR INHOUSE NEGATIVE (Negative)
[2024-09-21 10:35] LABS: Erythrocyte Sedimentation Rate 16 MM/HR (0-20)
[2024-09-21] MEDS: HYDROmorphone HCl 1 MG/ML SYRINGE IVPUSH (10:50)
[2024-09-21 10:54] VITALS: BP 119/61; PULSE 66; RESP 18; TEMP 37.1; O2SAT 98
[2024-09-21 10:57] VITALS: BP 119/61; PULSE 64; RESP 18; TEMP 36.7; O2SAT 98
[2024-09-21 12:03] VITALS: PULSE 71; O2SAT 95
[2024-09-21 12:15] LABS: Appearance Urine Clear; Color Urine Yellow; Glucose Urine UA Negative (Negative); Leukocyte Esterase Urine Negative (Negative); Nitrite Urine Negative (Negative); Urine Blood Negative (Negative); Urine Ketones Negative (Negative); Urine Protein Negative (Neg-Trace)
[2024-09-21 12:24] VITALS: BP 119/61; PULSE 64; RESP 18; TEMP 36.7; O2SAT 98
== END 2024-09-21 12:24 | disposition home or self-care (01) ==
PROVIDERS: Physician Assistant; Emergency Provider Emergency Medicine Emergency Medical Services
DX: J18.9 Pneumonia, unspecified organism (principal); R07.89 Other chest pain; R06.02 Shortness of breath; Z03.818 Encounter for observation for suspected exposure to other biological agents ruled out; Z79.899 Other long term (current) drug therapy
CPT/HCPCS: 0241U; 71046; 80048; 80076; 81003; 83735; 84484; 85025; 85652; 86140; 93005; 94640; 96374; 96375; 99284; 99285; J0696; J1171; J1885; J2270

== ENCOUNTER → 2024-09-21 08:44 | Outpatient (BNV) | payer OTHER, SELFPAY | PROVIDERS: Emergency Provider Emergency Medicine Emergency Medical Services; Visit Provider Internal Medicine Cardiovascular Disease | DX: R07.9 Chest pain, unspecified (principal); R06.02 Shortness of breath | CPT/HCPCS: 93010 ==

== ENCOUNTER → 2024-09-21 09:22 | Outpatient (BNV) | payer OTHER, SELFPAY | PROVIDERS: Emergency Provider Emergency Medicine Emergency Medical Services; Visit Provider Radiology Diagnostic Radiology | DX: R07.9 Chest pain, unspecified (principal) | CPT/HCPCS: 71046 ==

== ENCOUNTER 2024-10-11 11:51 | Emergency (ER) | payer OTHER, SELFPAY ==
--- NOTE | ~2024-10-11 | CT_ITS ---
EXAMINATION: CT ABDOMEN AND PELVIS WITHOUT CONTRAST CLINICAL INFORMATION: Left lower quadrant abdominal pain. COMPARISON: CT dated September 19, 2024. TECHNIQUE: Multidetector volumetric imaging was performed from the superior aspect of the liver through the pubic symphysis. Sagittal and coronal reformatted images were obtained on the technologist's workstation. This CT examination was performed using dose optimization techniques as appropriate, variously including the following: *Automated exposure control *Adjustment of mA and/or kV according to patient size (this includes techniques or standardized protocols for targeted exams where dose is matched to indication/reason for exam; i.e. extremities or head) *Use of iterative reconstruction technique DLP: 731 mGy-cm FINDINGS: Inadequate evaluation of the intra-abdominal organs and vascular structures due to lack of IV contrast. Multifocal patchy and confluent pulmonary groundglass, lingula. LIVER, GALLBLADDER, AND BILIARY TREE: Liver measures 17 cm. No intrahepatic biliary ductal patient. Gallbladder is contracted. No pericholecystic fluid collection or gallbladder wall thickening. Common bile duct measures less than 2 mm. PANCREAS: No peripancreatic fluid collection. No gross vein pancreatic ductal dilatation. SPLEEN: 11 cm. ADRENAL GLANDS: No nodular lesions. KIDNEYS AND URETERS: No hydronephrosis. No nephrolithiasis. BLADDER: Fluid-filled. GASTROINTESTINAL TRACT: There is a segmental pericolonic edema pattern in asymmetric wall thickening with multiple diverticula in the mid sigmoid colon. No pneumoperitoneum. No intestinal obstruction pattern. No gross fluid collection. Status post appendectomy. ABDOMINAL WALL: No gross hernia. LYMPH NODES: No lymphadenopathy. VASCULAR: No aneurysm, abdominal aorta. PELVIC VISCERA: No gross masses in the adnexa or the uterus. OSSEOUS STRUCTURES: Spondylosis, L5-S1 and to a lesser extent L4-5 resulting in bilateral neuroforamina narrowing. CT/CT abdomen pelvis wo IV con IMPRESSION: Acute sigmoid colon diverticulitis without overt pneumoperitoneum or fluid collection. Acute airspace disease, lingula. Fleischner guidelines were followed. Electronically signed by: Devan Ashton MD 10/11/2024 12:55 PM EST
--- NOTE | 2024-10-11 12:07 | ED_ITS ---
HPI - Abdominal Pain General Chief Complaint: Abdominal Pain Stated Complaint: l flank pain Time Seen by Provider: 10/11/24 16:17 Source: patient, family and old records reviewed Mode of arrival: ambulatory Limitations: no limitations History of Present Illness ED Provider: MICHELLE KISER narrative: 53 yo female with PMH of RA, diverticulitis, appendectomy, just treated and seen here for LL pneumonia with azithromycin and cefpodoxime. She reports 1 week of LLQ pain that has worsened with stabbing. She has nausea as well and hard stools - she notes she tried to wait it out but it got worse. She is able to eat and drink, her pain worsened in 24 hours. NO GIB symptoms reported. This would be her 3rd episode. MD elicited complaint: abdominal pain Pertinent past history: diverticulitis Onset (ago): week(s) (1) Pain Consistency: constant Location: LLQ Severity: severe Quality: stabbing Radiation: other (pelvic area) Migration to: no migration Exacerbating factors: movement Relieving factors: nothing Context: history of similar episodes Associated symptoms: nausea and constipation Related Data Previous Rx's ?Medication ?Instructions ?Recorded azithromycin 250 mg tablet See Rx Instructions PO .COMPLEX #6 09/20/24 tabs cefpodoxime 200 mg tablet 200 mg PO BID #12 tabs 09/21/24 cyclobenzaprine 10 mg tablet 10 mg PO Q12H PRN muscle spasm #10 09/21/24 tabs oxycodone 5 mg tablet 5 mg PO Q8H PRN severe pain (scale 09/21/24 score 7-10) #5 tabs levofloxacin 750 mg tablet 750 mg PO DAILY #9 tabs 10/11/24 metronidazole 500 mg tablet 500 mg PO BID 10 days #20 tabs 10/11/24 morphine 15 mg immediate release 15 mg PO Q6H PRN pain #12 tabs 10/11/24 tablet ondansetron 4 mg disintegrating 4 mg PO Q8H PRN nausea and 10/11/24 tablet vomiting #20 tabs Allergies Allergy/AdvReac Type Severity Reaction Status Date / Time Gadolinium-Containing Allergy Unknown Verified 10/11/24 12:10 Contrast Medi latex Allergy Unknown Verified 10/11/24 12:10 Review of Systems Review of Systems Constitutional : No Weight loss, No Fever, No Chills ENT/Mouth : No sore throat, No Rhinorrhea Eyes: No Swelling, No Redness Cardiovascular : No Chest Pain, No SOB, No Edema Respiratory : No Cough, No Sputum, No Wheezing Gastrointestinal : Positive Nausea, no Vomiting, no Diarrhea, positive abdominal Pain, No Hematochezia, No Melena Genitourinary : No Dysuria, No Urinary Frequency, No Hematuria, No Urgency Musculoskeletal : No joint pain, No Myalgias, No Joint Swelling Skin : No Skin Lesions, No rash Neuro : No Weakness, No Numbness, No Dizziness, No Headache All other systems reviewed and are negative. [facility] Past Medical History Attestation statement: The following information was validated with the patient. Source: old records reviewed Medical History Diverticulitis Social History Social History (Updated 10/11/24 @ 17:00 by Karen Card DO) Alcohol intake: never Patient Tobacco Use Status: Never used Tobacco Smoked in Last 30 Days: No Advance Directives: No Advance Directives Information Provided: No Patient : No Physical Exam ED Vital Signs: Vital Signs - 24 hr 10/11/24 12:08 10/11/24 17:08 Temperature 98.8 F Pulse Rate 78 Respiratory Rate 20 20 Blood Pressure 134/77 Pulse Oximetry 98 Oxygen Delivery Method Room Air BMI result Body Mass Index 37.8 Appearance: Alert. Oriented X3. No acute distress. Eyes: Pupils equal, round and reactive to light. ENT: Pharynx normal. Neck: Normal inspection. Neck supple. CVS: Normal heart rate and rhythm. Pulses normal. Respiratory: No respiratory distress. Breath sounds normal. Abdomen: Soft and moderate LLQ pain no rebound Skin: Skin warm and dry. Normal skin color. . Extremities: No lower extremity edema. Neuro: Oriented X 3. No motor deficit. No sensory deficit. Course Course Course Narrative: This is a Rapid Medical Exam performed in triage by Abril Horner PA-C. Full HPI, ROS and PE to be performed by primary ED provider. 53yo F with history of RA on Rituxan infusions, diverticulitis, presenting to the ED c/o LLQ abdominal pain x 7 days. Admits pain now radiates to left flank, comes in waves. +nausea. +abdominal pain worse when urinating. denies diarrhea, vomiting. PE: abdomen soft, +LLQ ttp. No CVAT Plan: labs, UA Medical Decision Making Medical Decision Making [facility] Narrative: 53 yo female with PMH of RA, diverticulitis, appendectomy, just treated and seen here for LL pneumonia now back with 1 week of LLQ pain - no vomiting, fevers, GI bleed symptoms. She has had diverticulitis before. At this time labs, CT scan suspect she can be managed as outpatient. IM pain control ordered. No signs of sepsis Differential Diagnosis Differential Diagnoses: The differential diagnosis associated with the presentation includes constipation, diverticulitis Admission/Observation Consideration of admission/observation: Escalation of care including admission/observation considered she can tolerate PO, uncomplicated diverticulitis, labs reassuring. she has persistent pneumonia on CT scan levofloxacin should also cover - discussed 3 weeks outpatient CXR patient has been waiting 5 hours in the ED states she would like to go home Lab Data [facility] Lab Attestation statement: I reviewed the patient's lab results. 10/11/24 12:53 10/11/24 12:53 Labs: Lab Results 10/11/24 Range/Units 12:53 WBC 6.4 (4.8-10.8) X10*3/uL RBC 4.27 (4.20-5.50) X10*6/uL Hgb 12.4 (12.0-16.0) g/dl Hct 36.7 L (37.0-47.0) % MCV 85.9 (80.0-98.0) fL MCH 29.0 (27.0-33.0) pg MCHC 33.8 (31.0-35.0) g/dl RDW 13.7 (11.0-16.0) % Plt Count 390 (160-400) X10*3/uL MPV 9.5 (9.4-12.3) fL Immature Gran % (Auto) 0.2 (0.0-0.4) % Neut % (Auto) 49.9 (45-73) % Lymph % (Auto) 28.0 (20-40) % [place] % (Auto) 18.8 H (2-11) % Eos % (Auto) 2.5 (0-4) % Baso % (Auto) 0.6 (0-2) % Lymph # (Auto) 1.8 (1.2-4.9) X10*3/uL [place] # (Auto) 1.2 (0.1-1.2) X10*3/uL Eos # (Auto) 0.2 (0.0-0.4) X10*3/uL Baso # (Auto) 0.0 (0.0-0.2) X10*3/uL Abs Immat Gran (auto) 0.01 (0.00-0.03) X10*3/uL Absolute Neuts (auto) 3.2 (2.0-8.3) x10*3/uL Absolute Nucleated RBC 0.000 (0.0-0.012) X10*3/uL Nucleated RBC % (auto) 0.0 (0.0-0.2) /100WBC Sodium 134 L (135-145) mmol/L Potassium 4.1 (3.3-5.1) mmol/L Chloride 105 (96-108) mmol/L Carbon Dioxide 23 (22-29) mmol/L Anion Gap 10 L (12-20) BUN 12 (9-16) mg/dL Creatinine 0.80 (0.5-1.4) mg/dL Estim Creat Clear Calc 91.2 Estimated GFR > 60 Random Glucose 84 (60-115) mg/dL Calcium 9.5 (8.4-10.2) mg/dL Magnesium 2.0 (1.6-2.6) mg/dL Total Bilirubin 0.4 (0.0-1.0) mg/dL Direct Bilirubin 0.1 (0.0-0.5) mg/dL AST 26 (5-31) U/L ALT 26 (0-31) U/L Alkaline Phosphatase 78 (39-117) U/L Total Protein 6.9 (6.5-8.0) g/dL Albumin 4.3 (3.5-5.0) g/dL Lipase 23 (8-78) U/L Urine Color Dark Yellow Urine Appearance Clear Urine pH 6.5 (5.0-9.0) Ur Specific [place] 1.025 (1.005-1.025) Urine Protein Negative (Neg-Trace) mg/dL Urine Glucose (UA) Negative (Negative) mg/dL Urine Ketones Trace (Negative) mg/dL Urine Blood Negative (Negative) Urine Nitrite Negative (Negative) Ur Leukocyte Esterase Negative (Negative) Independent Interpretation I performed an independent interpretation of an: CT Scan (diverticulitis) Radiology Impression Discussion of test interpretation with radiology: I have reviewed the radiologist's reading. Independent Historian Clinical information obtained from an independent historian. History obtained from or confirmed by: Parent External Record Review External record reviewed: Outpatient record Prescription Management I considered prescription management with: Pain Medication, Antibiotic and Other Medications Administered Discontinued Medications Generic Name Dose Route Start Last Admin Trade Name Freq PRN Reason Stop Dose Admin Hydromorphone HCl 2 mg 10/11/24 16:34 10/11/24 17:08 Hydromorphone Hcl 2 Mg/Ml Vial IM 10/11/24 16:35 2 mg ONCE ONE Administration Protocol Levofloxacin 750 mg 10/11/24 16:34 10/11/24 17:39 Levofloxacin 750 Mg Tablet PO 10/11/24 16:35 750 mg ONCE ONE Administration Metronidazole 500 mg 10/11/24 16:34 10/11/24 17:39 Metronidazole 500 Mg Tablet PO 10/11/24 16:35 500 mg ONCE ONE Administration Ondansetron HCl 4 mg 10/11/24 16:34 10/11/24 17:07 Ondansetron Odt 4 Mg Tab.Rapdis TRANSLINGU 10/11/24 16:35 4 mg ONCE ONE Administration Discharge Plan Discharge Clinical Impression: Diverticulitis Patient Disposition: Home, Self-Care Instructions: Diverticulitis (ED), Diverticulitis Diet (ED) Additional Instructions: return for worsening pain, fevers, vomiting, unable to eat or drink follow up with your doctor in the next week rest and stay hydrated, you might have some mild blood in stool but not rachelle blood filling a toilet - seek help if this happens no ETOH on antibiotics levaquin can damage tendons - no exercise while on it other than walks - wait 5 days to resume exercise after you complete antibiotis there is still some residual pneumonia left lung - please have your doctor repeat CXR in 3 weeks unless your symptoms worsen seek care before given your fist dose of antibiotics in the ED please do not take anymore tonight Prescriptions: New morphine 15 mg tablet 15 mg PO Q6H PRN (Reason: pain) Qty: 12 0RF Rx Instructions: partial fill okay; Partial Fill upon patient request. ondansetron 4 mg tablet,disintegrating 4 mg PO Q8H PRN (Reason: nausea and vomiting) Qty: 20 0RF levofloxacin 750 mg tablet 750 mg PO DAILY Qty: 9 0RF metronidazole 500 mg tablet 500 mg PO BID 10 Days Qty: 20 0RF No Action cefpodoxime 200 mg tablet 200 mg PO BID Qty: 12 0RF Rx Instructions: must administer with a meal/food cyclobenzaprine 10 mg tablet 10 mg PO Q12H PRN (Reason: muscle spasm) Qty: 10 0RF oxycodone 5 mg tablet 5 mg PO Q8H PRN (Reason: severe pain (scale score 7-10)) Qty: 5 0RF Rx Instructions: Partial Fill upon patient request. azithromycin 250 mg tablet See Rx Instructions .ROUTE .COMPLEX Qty: 6 0RF Rx Instructions: For 250 mg dose pack: take 500 mg today (day 1), then 250 mg for 4 days (days 2-5) Stand Alone Forms: Work/School Release Print Language: Maori
[2024-10-11 12:08] VITALS: BP 134/77; PULSE 78; RESP 20; TEMP 37.1; O2SAT 98; BMI 37.8
[2024-10-11 13:00] LABS: MANUAL DIFF FLAG NO
[2024-10-11 13:03] LABS: Appearance Urine Clear; Basophils Percent Auto 0.6 % (0-2); Color Urine Dark Yellow; Eosinophils Absolute Auto 0.2 X10*3/uL (0.0-0.4); Eosinophils Percent Auto 2.5 % (0-4); Glucose Urine UA Negative (Negative); Hematocrit 36.7 % (37.0-47.0); Hemoglobin 12.4 g/dl (12.0-16.0); Imm Gran Abs Auto 0.01 X10*3/uL (0.00-0.03); Imm Gran Pct Auto 0.2 % (0.0-0.4); Leukocyte Esterase Urine Negative (Negative); Lymphocytes Absolute Auto 1.8 X10*3/uL (1.2-4.9); Mean Corpuscular HGB Conc 33.8 g/dl (31.0-35.0); Mean Corpuscular Volume 85.9 fL (80.0-98.0); Mean Platelet Volume 9.5 fL (9.4-12.3); Monocytes Absolute Auto 1.2 X10*3/uL (0.1-1.2); Monocytes Percent Auto 18.8 % (2-11); Neutrophils Absolute Auto 3.2 x10*3/uL (2.0-8.3); Neutrophils Percent Auto 49.9 % (45-73); Nitrite Urine Negative (Negative); PH 6.5 (5.0-9.0); Platelet Count 390 X10*3/uL (160-400); Red Blood Count 4.27 X10*6/uL (4.20-5.50); Red Cell Distribution Width 13.7 % (11.0-16.0); Specific Gravity - Urine 1.025 (1.005-1.025); Urine Blood Negative (Negative); Urine Ketones Trace mg/dL (Negative); Urine Protein Negative (Neg-Trace); White Blood Count 6.4 X10*3/uL (4.8-10.8)
[2024-10-11 13:22] LABS: Alanine Aminotransferase 26 U/L (0-31); Albumin Level 4.3 g/dL (3.5-5.0); Alkaline Phosphatase 78 U/L (39-117); Anion Gap 10 (12-20); Aspartate Amino Transferase 26 U/L (5-31); Bilirubin Direct 0.1 mg/dL (0.0-0.5); Bilirubin Total 0.4 mg/dL (0.0-1.0); Blood Urea Nitrogen 12 mg/dL (9-16); Calcium 9.5 mg/dL (8.4-10.2); Carbon Dioxide 23 mmol/L (22-29); Chloride 105 mmol/L (96-108); Creatinine Clr Calc Pharmacy 91.2; Estimated Glomerular Filt Rate > 60; Glucose Random 84 mg/dL (60-115); Lipase 23 U/L (8-78); Potassium 4.1 mmol/L (3.3-5.1); Sodium 134 mmol/L (135-145); Total Protein 6.9 g/dL (6.5-8.0)
[2024-10-11] MEDS: Ondansetron ODT 4 MG TAB.RAPDIS TRANSLINGU (17:07)
[2024-10-11 17:08] VITALS: RESP 20
[2024-10-11] MEDS: HYDROmorphone HCl 2 MG/ML VIAL IM (17:08)
[2024-10-11] MEDS: levoFLOXacin 750 MG TABLET PO (17:39)
[2024-10-11] MEDS: metroNIDAZOLE 500 MG TABLET PO (17:39)
[2024-10-11 18:00] VITALS: BP 130/86; PULSE 70; RESP 18; TEMP 37.1; O2SAT 98
[2024-10-11] MEDS: Morphine Sulfate Immed Release 15 MG TABLET PO (18:05)
[2024-10-11 18:11] VITALS: BP 130/86; PULSE 70; RESP 18; TEMP 37.1; O2SAT 98
== END 2024-10-11 18:16 | disposition home or self-care (01) ==
PROVIDERS: Physician Assistant; Emergency Provider Emergency Medicine
DX: K57.92 Diverticulitis of intestine, part unspecified, without perforation or abscess without bleeding (principal); R10.2 Pelvic and perineal pain; R10.31 Right lower quadrant pain; R11.2 Nausea with vomiting, unspecified; K59.00 Constipation, unspecified; Z79.899 Other long term (current) drug therapy
CPT/HCPCS: 36415; 74176; 80048; 80076; 81003; 83690; 83735; 85025; 87040; 96372; 99284; J1171

== ENCOUNTER → 2024-10-11 12:11 | Outpatient (BNV) | payer OTHER, SELFPAY | PROVIDERS: Visit Provider Radiology Diagnostic Radiology | DX: R10.32 Left lower quadrant pain (principal) | CPT/HCPCS: 74176 ==

== ENCOUNTER 2024-10-15 14:38 | Inpatient (IN) | payer OTHER, SELFPAY ==
--- NOTE | ~2024-10-15 | CT_ITS ---
EXAMINATION: CT ANGIOGRAM CHEST CLINICAL INFORMATION: Shortness of breath COMPARISON: Chest radiograph 10/15/2024 CT chest, abdomen and pelvis 11/19/2024. TECHNIQUE: Multiple axial images were obtained through the chest after the administration of 100 mL of Omnipaque 350 intravenous contrast. Extensive vascular post-processing including two-dimensional and three-dimensional reformatted images were created and reviewed on an independent workstation. This CT examination was performed using dose optimization techniques as appropriate, variously including the following: *Automated exposure control *Adjustment of mA and/or kV according to patient size (this includes techniques or standardized protocols for targeted exams where dose is matched to indication/reason for exam; i.e. extremities or head) *Use of iterative reconstruction technique DLP: 1149 mGy-cm FINDINGS: Pulmonary arterial system: High-density intraluminal opacification of the pulmonary arterial system is present. No intraluminal filling defects are noted to suggest the presence of pulmonary emboli. Normal caliber of the main central pulmonary arteries. A 4 mm x 3 mm noncalcified subpleural nodules present in the right middle pulmonary lobe peripherally (series 603 image 232). Thoracic aorta: Normal in caliber. Mediastinum: No lymphadenopathy. Normal heart size. No pericardial thickening or pericardial fluid collections. Moderate scattered coronary artery calcific atherosclerosis. Lungs and pleura: Multifocal airspace and peribronchial opacities are present within the left upper pulmonary lobe in particular the lingula and to lesser degree within the base of the left lower pulmonary lobe. No effusions or pneumothoraces. Thoracic wall: No axillary lymphadenopathy. No thoracic wall inflammatory changes. Visualized abdominal structures: The adrenal glands are partially included in the image field of view are normal in appearance. Osseous structures: No suspicious skeletal lesions. CT/CT angio chest PE protocol IMPRESSION: *CT pulmonary angiogram negative for pulmonary emboli. *Multifocal, predominantly scattered peribronchial consolidation within the left upper and left lower pulmonary lobe suspicious for pneumonia. *Single 4 mm right middle lobe pulmonary nodule. According to the UPDATED 2017 Fleischner Society recommendations, the advised follow-up imaging for solid nodules <6 mm in the middle/lower lobes is no routine follow up. *Moderate scattered coronary artery calcific atherosclerosis. VTE: negative Electronically signed by: Sean Clement MD 10/16/2024 04:06 AM [facility]
--- NOTE | ~2024-10-15 | CT_ITS ---
EXAMINATION: CT ABDOMEN AND PELVIS WITH CONTRAST CLINICAL INFORMATION: Abdominal pain. Prior recent CT demonstrated acute sigmoid colon diverticulitis. COMPARISON: CT dated October 11, 2024. TECHNIQUE: Multidetector volumetric images were obtained from the superior aspect of the liver through the pubic symphysis following administration 65 mL of Omnipaque 350 intravenous contrast without reported immediate complications. Sagittal and coronal reformatted images were obtained on the technologist's workstation. Oral contrast: No This CT examination was performed using dose optimization techniques as appropriate, variously including the following: *Automated exposure control *Adjustment of mA and/or kV according to patient size (this includes techniques or standardized protocols for targeted exams where dose is matched to indication/reason for exam; i.e. extremities or head) *Use of iterative reconstruction technique DLP: 809 mGy-cm FINDINGS: Patchy and confluent pulmonary groundglass, lingula. Focal small perisigmoid: Edema pattern involving the inferior aspect of the proximal to mid sigmoid colon. No fluid collection. Numerous diverticula in the sigmoid colon. No pneumoperitoneum. No ascites. No intestinal obstruction pattern. No other change in the abdomen and pelvis organs and vascular structures.. CT/CT abdomen pelvis w IV con IMPRESSION: Overall improved with the persistent acute to subacute inflammatory process without peritoneal fluid collection or pneumoperitoneum/extraluminal gas. Fleischner guidelines were followed. Electronically signed by: Devan Ashton MD 10/16/2024 07:56 AM [facility]
--- NOTE | ~2024-10-15 | XR_ITS ---
EXAMINATION: XR CHEST CLINICAL INFORMATION: SOB. WOrsening Pneumonia? COMPARISON: Chest radiograph dated September 21, 2024. CT abdomen/pelvis dated October 11, 2024. TECHNIQUE: Frontal view of the chest was obtained. FINDINGS: There is a patchy opacity involving the left mid and lower lung likely representing infection. The right lung is clear. No pleural effusion. No pneumothorax. The heart is normal in size. No acute osseous abnormality. XR/XR chest 1V IMPRESSION: There is a patchy opacity involving the left mid and lower lung likely representing pneumonia. Electronically signed by: Rosas Franklin DO 10/15/2024 09:35 PM EST
--- NOTE | 2024-10-15 14:40 | ECG_ITS ---
Test Reason : CP Blood Pressure : / mmHG Vent. Rate : 092 BPM Atrial Rate : 092 BPM P-R Int : 160 ms QRS Dur : 092 ms QT Int : 354 ms P-R-T Axes : 021 -04 011 degrees QTc Int : 437 ms Normal sinus rhythm Low voltage QRS Borderline ECG When compared with ECG of 21-SEP-2024 08:40, No significant change was found Referred By: Generic ED Physician Electronically Signed By:JENNIFER MYERS MD
[2024-10-15 14:48] VITALS: BP 140/80; PULSE 92; RESP 16; TEMP 36.4; O2SAT 98; BMI 37.6
--- NOTE | 2024-10-15 14:52 | ED_ITS ---
HPI - General Adult General Stated complaint: diff breathing chest pain Related Data Previous Rx's ?Medication ?Instructions ?Recorded azithromycin 250 mg tablet See Rx Instructions PO .COMPLEX #6 09/20/24 tabs cefpodoxime 200 mg tablet 200 mg PO BID #12 tabs 09/21/24 cyclobenzaprine 10 mg tablet 10 mg PO Q12H PRN muscle spasm #10 09/21/24 tabs oxycodone 5 mg tablet 5 mg PO Q8H PRN severe pain (scale 09/21/24 score 7-10) #5 tabs levofloxacin 750 mg tablet 750 mg PO DAILY #9 tabs 10/11/24 metronidazole 500 mg tablet 500 mg PO BID 10 days #20 tabs 10/11/24 morphine 15 mg immediate release 15 mg PO Q6H PRN pain #12 tabs 10/11/24 tablet ondansetron 4 mg disintegrating 4 mg PO Q8H PRN nausea and 10/11/24 tablet vomiting #20 tabs Allergies Allergy/AdvReac Type Severity Reaction Status Date / Time Gadolinium-Containing Allergy Unknown Verified 10/15/24 14:51 Contrast Medi latex Allergy Unknown Verified 10/15/24 14:51 FOR[facility]LY [facility] Past Medical History Medical History Diverticulitis Social History Social History (Updated 10/11/24 @ 17:00 by Karen Card DO) Alcohol intake: never Patient Tobacco Use Status: Never used Tobacco Course Course Course Narrative: RME: 53-year-old female known pneumonia presents to ED for worsening shortness of breath. Patient is status a 2nd rales antibiotics for the pneumonia which has not improved. Patient states slight chest pain. Repeat labs EKG chest x- ray ordered. Discharge Plan Discharge Prescriptions: No Action cefpodoxime 200 mg tablet 200 mg PO BID Qty: 12 0RF Rx Instructions: must administer with a meal/food cyclobenzaprine 10 mg tablet 10 mg PO Q12H PRN (Reason: muscle spasm) Qty: 10 0RF oxycodone 5 mg tablet 5 mg PO Q8H PRN (Reason: severe pain (scale score 7-10)) Qty: 5 0RF Rx Instructions: Partial Fill upon patient request. morphine 15 mg tablet 15 mg PO Q6H PRN (Reason: pain) Qty: 12 0RF Rx Instructions: partial fill okay; Partial Fill upon patient request. ondansetron 4 mg tablet,disintegrating 4 mg PO Q8H PRN (Reason: nausea and vomiting) Qty: 20 0RF levofloxacin 750 mg tablet 750 mg PO DAILY Qty: 9 0RF metronidazole 500 mg tablet 500 mg PO BID 10 Days Qty: 20 0RF azithromycin 250 mg tablet See Rx Instructions .ROUTE .COMPLEX Qty: 6 0RF Rx Instructions: For 250 mg dose pack: take 500 mg today (day 1), then 250 mg for 4 days (days 2-5) Print Language: Wolof
[2024-10-15 15:40] LABS: MANUAL DIFF FLAG NO
[2024-10-15 15:43] LABS: Basophils Percent Auto 0.5 % (0-2); Eosinophils Absolute Auto 0.1 X10*3/uL (0.0-0.4); Eosinophils Percent Auto 1.2 % (0-4); Hemoglobin 13.2 g/dl (12.0-16.0); Imm Gran Abs Auto 0.04 X10*3/uL (0.00-0.03); Imm Gran Pct Auto 0.5 % (0.0-0.4); Lymphocytes Absolute Auto 1.8 X10*3/uL (1.2-4.9); Lymphocytes Percent Auto 23.2 % (20-40); Mean Corpuscular HGB Conc 34.7 g/dl (31.0-35.0); Mean Corpuscular Hemoglobin 29.5 pg (27.0-33.0); Mean Corpuscular Volume 84.8 fL (80.0-98.0); Mean Platelet Volume 9.1 fL (9.4-12.3); Monocytes Absolute Auto 0.8 X10*3/uL (0.1-1.2); Monocytes Percent Auto 10.4 % (2-11); Neutrophils Percent Auto 64.2 % (45-73); Platelet Count 446 X10*3/uL (160-400); Red Blood Count 4.48 X10*6/uL (4.20-5.50); White Blood Count 7.8 X10*3/uL (4.8-10.8)
[2024-10-15 15:49] LABS: INTERNATIONAL NORM RATIO 1.1 (0.9-1.1)
[2024-10-15 16:09] LABS: B Type Natriuretic Peptide < 10 pg/mL (<100)
[2024-10-15 16:10] LABS: Alanine Aminotransferase 23 U/L (0-31); Albumin Level 4.5 g/dL (3.5-5.0); Anion Gap 17 (12-20); Aspartate Amino Transferase 30 U/L (5-31); Bilirubin Total 0.4 mg/dL (0.0-1.0); Blood Urea Nitrogen 16 mg/dL (9-16); Calcium 10.5 mg/dL (8.4-10.2); Carbon Dioxide 20 mmol/L (22-29); Chloride 104 mmol/L (96-108); Creatinine Clr Calc Pharmacy 83.6; Estimated Glomerular Filt Rate > 60; Glucose Random 86 mg/dL (60-115); Potassium 4.3 mmol/L (3.3-5.1); Sodium 137 mmol/L (135-145); Total Protein 7.3 g/dL (6.5-8.0)
[2024-10-15 16:20] LABS: Alkaline Phosphatase 73 U/L (39-117)
[2024-10-15 16:21] LABS: Troponin-I High Sensitivity < 2.7 ng/L (<3.5-17.0)
[2024-10-15 21:13] VITALS: BP 144/100; PULSE 80; RESP 20; TEMP 36.8; O2SAT 97
[2024-10-15 22:42] VITALS: BP 149/85; PULSE 92; RESP 15; TEMP 36.8; O2SAT 96
--- NOTE | 2024-10-15 23:26 | MHC.EDTECH ---
this tech assumed care of pt at 2300, upon rounding the pt was witnessed to be sitting up in her stretcher and connected to the child monitor. Pt had requested to see the doctor and RN for pain management, no other request were made at this time.
--- NOTE | 2024-10-15 23:47 | ED.CHESTPAIN ---
HPI - Chest Pain General Chief Complaint: Chest Pain Stated Complaint: diff breathing chest pain Time Seen by Provider: 10/15/24 22:35 History of Present Illness HPI narrative: Patient is a 53-year-old female with a history of rheumatoid arthritis. Was seen on the at that time had a CTA done. The CTA showed a question pneumonia although overall the workup was negative there is no PE. Patient's CT a of the this was also negative at the time. Patient called back later in the day found out that in the lungs there may have been some small consolidation. Patient initially was started on a Z-Justin. Two days later she presented back with having increasing pain. She was started on cefpodoxime and also on azithromycin. Came back on the . Now with some abdominal pain. A CT of the abdomen was done. The CT abdomen was positive for diverticulitis. There is no perforation there is no obstruction. Patient came back today because there is increasing chest pain when she takes a deep breath. There is no new leg swelling. There is some shortness of breath. Patient never had hypoxia. No coughing no congestion. Patient is from home. No diaphoresis. No new leg swelling patient's larger in size. Related Data Home Medications ?Medication ?Instructions ?Recorded ?Confirmed Culturelle See Rx Instructions .Route .COMPLEX 10/16/24 10/16/24 lumateperone 42 mg capsule 42 mg PO BEDTIME 10/16/24 10/16/24 (Caplyta) magnesium citrate 400 mg 10/16/24 Previous Rx's ?Medication ?Instructions ?Recorded azithromycin 250 mg tablet See Rx Instructions PO .COMPLEX #6 09/20/24 tabs cefpodoxime 200 mg tablet 200 mg PO BID #12 tabs 09/21/24 cyclobenzaprine 10 mg tablet 10 mg PO Q12H PRN muscle spasm #10 09/21/24 tabs oxycodone 5 mg tablet 5 mg PO Q8H PRN severe pain (scale 09/21/24 score 7-10) #5 tabs levofloxacin 750 mg tablet 750 mg PO DAILY #9 tabs 10/11/24 metronidazole 500 mg tablet 500 mg PO BID 10 days #20 tabs 10/11/24 morphine 15 mg immediate release 15 mg PO Q6H PRN pain #12 tabs 10/11/24 tablet ondansetron 4 mg disintegrating 4 mg PO Q8H PRN nausea and 10/11/24 tablet vomiting #20 tabs Allergies Allergy/AdvReac Type Severity Reaction Status Date / Time Gadolinium-Containing Allergy Unknown Verified 10/15/24 14:51 Contrast Medi latex Allergy Unknown Verified 10/15/24 14:51 Review of Systems Review of Systems: Positive chest pain Yes all other systems are reviewed and are negative [facility] Past Medical History Attestation statement: The following information was validated with the patient. Medical History Diverticulitis Social History Social History Alcohol intake: never Patient Tobacco Use Status: Never used Tobacco Smoked in Last 30 Days: Yes Use of substances other than those prescribed or required for medical reasons: No Advance Directives: No Advance Directives Information Provided: No Do you have a plan to hurt others: No Plan Patient : No Physical Exam Vital Signs: Vital Signs: Last Vital Signs Temp 97.5 F 10/16/24 05:48 Pulse 125 H 10/16/24 05:48 Resp 18 10/16/24 05:48 BP 114/70 10/16/24 05:48 Pulse Ox 95 10/16/24 05:48 O2 Del Method Room Air 10/16/24 05:48 BMI result Body Mass Index 37.6 Appearance: Alert. Oriented X3. No acute distress. Eyes: Pupils equal, round and reactive to light. ENT: Pharynx normal. Neck: Normal inspection. Neck supple. No lymph nodes noted. No crepitus CVS: Normal heart rate and rhythm. Pulses normal. Normal S1 and S2 Respiratory: No respiratory distress. Breath sounds normal. No Wheezing. No rales Abdomen: Soft and nontender. No rigidity. No distention. good BS x4 Skin: Skin warm and dry. Normal skin color. Normal skin turgor. Extremities: No lower extremity edema. Neurovascular intact to all extremities. No Lacerations. No Rash Neuro: Oriented X 3. No motor deficit. No sensory deficit. Moving all extermities. No slurred speech Medications Administered Discontinued Medications Generic Name Dose Route Start Last Admin Trade Name Freq PRN Reason Stop Dose Admin Albuterol Sulfate 2.5 mg/ 0 mg 10/16/24 04:36 10/16/24 05:14 Albuterol/Ipratropium 3 ml INHALE 10/16/24 04:37 1 dose ONCE ONE Administration Hydromorphone HCl 0.5 mg 10/15/24 23:41 10/15/24 23:55 Hydromorphone Hcl 0.5 Mg/0.5 Ml Syringe IVPUSH 10/15/24 23:42 0.5 mg ONCE ONE Administration Protocol Piperacillin Sod/Tazobactam 50 mls @ 100 mls/hr 10/16/24 04:36 10/16/24 06:47 Sod 3.375 gm/ Sodium Chloride IV 10/16/24 05:05 Infused ONCE ONE Infusion Azithromycin 500 mg/ Sodium 250 mls @ 125 mls/hr 10/16/24 04:36 10/16/24 05:12 Chloride IV 10/16/24 06:35 125 mls/hr ONCE ONE Administration Iohexol 65 ml 10/16/24 00:26 10/16/24 00:27 Iohexol 350 Mg/Ml 100 Ml Infus..Btl IV 10/16/24 00:27 65 ml ONCE ONE Administration Ketorolac Tromethamine 30 mg 10/16/24 02:34 10/16/24 02:43 Ketorolac Tromethamine 30 Mg/Ml Vial IVPUSH 10/16/24 02:35 30 mg ONCE ONE Administration Methylprednisolone Sodium Succinate 125 mg 10/16/24 04:36 10/16/24 04:50 Methylprednisolone Sod Succ 125 Mg/2 Ml Vial IVPUSH 10/16/24 04:37 125 mg ONCE ONE Administration Morphine Sulfate 4 mg 10/16/24 05:38 10/16/24 05:45 Morphine Sulfate 4 Mg/Ml Cartridge IVPUSH 10/16/24 05:39 4 mg ONCE ONE Administration Protocol Ondansetron HCl 4 mg 10/16/24 00:29 10/16/24 00:33 Ondansetron Hcl 4 Mg/2 Ml Vial IVPUSH 10/16/24 00:30 4 mg ONCE ONE Administration Medical Decision Making Medical Decision Making MDM Narrative: Patient's rheumatoid arthritis on Rituxan infusion with diverticulitis with multifocal pneumonia immunocompromised poor response to outpatient antibiotics treatment Levaquin and Flagyl will admit patient for IV antibiotics and treatment for atypical bacteria Admission/Observation Consideration of admission/observation: Escalation of care including admission/observation considered Consult Healthcare Provider Management of the patient was discussed with: Hospitalist Lab Data MDM Lab Attestation statement: I reviewed the patient's lab results. 10/15/24 15:36 10/15/24 15:36 Labs: Lab Results 10/15/24 10/15/24 10/15/24 Range/Units 15:36 22:59 23:54 WBC 7.8 (4.8-10.8) X10*3/uL RBC 4.48 (4.20-5.50) X10*6/uL Hgb 13.2 (12.0-16.0) g/dl Hct 38.0 (37.0-47.0) % MCV 84.8 (80.0-98.0) fL MCH 29.5 (27.0-33.0) pg MCHC 34.7 (31.0-35.0) g/dl RDW 13.0 (11.0-16.0) % Plt Count 446 H (160-400) X10*3/uL MPV 9.1 L (9.4-12.3) fL Immature Gran % (Auto) 0.5 H (0.0-0.4) % Neut % (Auto) 64.2 (45-73) % Lymph % (Auto) 23.2 (20-40) % Door % (Auto) 10.4 (2-11) % Eos % (Auto) 1.2 (0-4) % Baso % (Auto) 0.5 (0-2) % Lymph # (Auto) 1.8 (1.2-4.9) X10*3/uL Door # (Auto) 0.8 (0.1-1.2) X10*3/uL Eos # (Auto) 0.1 (0.0-0.4) X10*3/uL Baso # (Auto) 0.0 (0.0-0.2) X10*3/uL Abs Immat Gran (auto) 0.04 H (0.00-0.03) X10*3/uL Absolute Neuts (auto) 5.0 (2.0-8.3) x10*3/uL Absolute Nucleated RBC 0.000 (0.0-0.012) X10*3/uL Nucleated RBC % (auto) 0.0 (0.0-0.2) /100WBC PT 13.0 H (10.9-12.4) SEC INR 1.1 (0.9-1.1) APTT 38.0 H (26.0-36.8) SEC Sodium 137 (135-145) mmol/L Potassium 4.3 (3.3-5.1) mmol/L Chloride 104 (96-108) mmol/L Carbon Dioxide 20 L (22-29) mmol/L Anion Gap 17 (12-20) BUN 16 (9-16) mg/dL Creatinine 0.87 (0.5-1.4) mg/dL Estim Creat Clear Calc 83.6 Estimated GFR > 60 Random Glucose 86 (60-115) mg/dL Lactic Acid 0.7 (0.5-2.0) mmol/L Calcium 10.5 H D (8.4-10.2) mg/dL Total Bilirubin 0.4 (0.0-1.0) mg/dL AST 30 (5-31) U/L ALT 23 (0-31) U/L Alkaline Phosphatase 73 (39-117) U/L Troponin I High Sens < 2.7 < 2.7 (<3.5-17.0) ng/L B-Natriuretic Peptide < 10 (<100) pg/mL Total Protein 7.3 (6.5-8.0) g/dL Albumin 4.5 (3.5-5.0) g/dL Influenza Type A (PCR) (Negative) Influenza Type B (PCR) (Negative) RSV RNA Qual (PCR) (Negative) SARS-CoV-2 RNA (RT-PCR) (Negative) 10/16/24 Range/Units 01:00 WBC (4.8-10.8) X10*3/uL RBC (4.20-5.50) X10*6/uL Hgb (12.0-16.0) g/dl Hct (37.0-47.0) % MCV (80.0-98.0) fL MCH (27.0-33.0) pg MCHC (31.0-35.0) g/dl RDW (11.0-16.0) % Plt Count (160-400) X10*3/uL MPV (9.4-12.3) fL Immature Gran % (Auto) (0.0-0.4) % Neut % (Auto) (45-73) % Lymph % (Auto) (20-40) % Door % (Auto) (2-11) % Eos % (Auto) (0-4) % Baso % (Auto) (0-2) % Lymph # (Auto) (1.2-4.9) X10*3/uL Door # (Auto) (0.1-1.2) X10*3/uL Eos # (Auto) (0.0-0.4) X10*3/uL Baso # (Auto) (0.0-0.2) X10*3/uL Abs Immat Gran (auto) (0.00-0.03) X10*3/uL Absolute Neuts (auto) (2.0-8.3) x10*3/uL Absolute Nucleated RBC (0.0-0.012) X10*3/uL Nucleated RBC % (auto) (0.0-0.2) /100WBC PT (10.9-12.4) SEC INR (0.9-1.1) APTT (26.0-36.8) SEC Sodium (135-145) mmol/L Potassium (3.3-5.1) mmol/L Chloride (96-108) mmol/L Carbon Dioxide (22-29) mmol/L Anion Gap (12-20) BUN (9-16) mg/dL Creatinine (0.5-1.4) mg/dL Estim Creat Clear Calc Estimated GFR Random Glucose (60-115) mg/dL Lactic Acid (0.5-2.0) mmol/L Calcium (8.4-10.2) mg/dL Total Bilirubin (0.0-1.0) mg/dL AST (5-31) U/L ALT (0-31) U/L Alkaline Phosphatase (39-117) U/L Troponin I High Sens (<3.5-17.0) ng/L B-Natriuretic Peptide (<100) pg/mL Total Protein (6.5-8.0) g/dL Albumin (3.5-5.0) g/dL Influenza Type A (PCR) NEGATIVE (Negative) Influenza Type B (PCR) NEGATIVE (Negative) RSV RNA Qual (PCR) NEGATIVE (Negative) SARS-CoV-2 RNA (RT-PCR) NEGATIVE (Negative) Discharge Plan Discharge Clinical Impression: Multifocal pneumonia, Acute diverticulitis Patient Disposition: Admitted As Inpatient Print Language: Slovak
[2024-10-15 23:50] LABS: Troponin-I High Sensitivity < 2.7 ng/L (<3.5-17.0)
[2024-10-15] MEDS: HYDROmorphone HCl 0.5 MG/0.5 ML SYRINGE IVPUSH (23:55)
[2024-10-15 23:57] VITALS: BP 143/98; PULSE 89; RESP 15; TEMP 36.8; O2SAT 95
[2024-10-16] VITALS (11 sets, daily range): BP systolic 108–146; BP diastolic 54–93; PULSE 78–125; RESP 14–19; TEMP 36–36.9; O2SAT 93–98; BMI 36.9
[2024-10-16 00:17] LABS: Lactic Acid 0.7 mmol/L (0.5-2.0)
[2024-10-16] MEDS: iohexoL 350 MG/ML 100 ML INFUS..BTL 65 ML IV (00:27)
[2024-10-16] MEDS: ondansetron HCL 4 MG/2 ML VIAL IVPUSH (00:33)
[2024-10-16 02:37] LABS: Influenza A PCR NEGATIVE (Negative); Influenza B PCR NEGATIVE (Negative); Resp Syncy Virus RNA Qual PCR NEGATIVE (Negative); SARS COV2 PCR INHOUSE NEGATIVE (Negative)
[2024-10-16] MEDS: Ketorolac Tromethamine 30 MG/ML VIAL IVPUSH (02:43)
[2024-10-16] MEDS: Piperacillin Sodium/Tazobactam 3.375 GM in 0.9 % Sodium Chloride 50 ML IV (04:50)
[2024-10-16] MEDS: methylPREDNISolone Sod Succ 125 MG/2 ML VIAL IVPUSH (04:50)
[2024-10-16] MEDS: Azithromycin 500 MG in 0.9 % Sodium Chloride 250 ML 125 MG IV (05:12)
[2024-10-16] MEDS: Albuterol Sulfate 2.5 MG, Albuterol/Iprat 2.5/0.5MG 3 ML 3 ML INHALE (05:14)
[2024-10-16] MEDS: Morphine Sulfate 4 MG/ML CARTRIDGE IVPUSH (05:45)
--- NOTE | 2024-10-16 08:28 | PHA.MEDREC ---
Pharmacy Consult ? Medication Reconciliation Pharmacy has completed the medication reconciliation. Spoke with pt at bedtime, she was able to confirm all her meds. Stated she was given 4 antibiotics, the azithromycin and metronidazole are finished and she has been taking levofloxacin and cefpodoxime at home. Added that she takes omeprazole 20mg at night as well as Vitamin D3, and Calcium Carbonate OTC. She states she will restart her estradiol cream at home according to the prescriber's instructions, so I removed it from the list.
--- NOTE | 2024-10-16 08:47 | HO.SKINPHOTO ---
Location: R AC 20G IV Category: Stage: Length: Width: Depth: cm minor swelling and discomfort following infusion IV Azithromycin Location: Category: Stage: Length: Width: Depth: cm Location: Category: Stage: Length: Width: Depth: cm Location: Category: Stage: Length: Width: Depth: cm Location: Category: Stage: Length: Width: Depth: cm Location: Category: Stage: Length: Width: Depth: cm
--- NOTE | 2024-10-16 08:49 | PC.NURSE ---
pt complaining of discomfort to her RAC IV line following administration of Azithromycin. IV line intact, flushed well. skin photo updated to chart
--- NOTE | 2024-10-16 11:25 | PM.IMHP ---
History of Present Illness Date of Service: 10/16/24 Chief Complaint: chest pain 53 year old female with PMH significant for rheumatoid arthritis, immunocompromised on Rituxan infusions, last infusion 09/13/24), diverticulitis, appendectomy. Presenting with abdominal and chest pain. She had had increasing chest pain with inspiration. No other acute changes reported. She denied nausea, vomiting, diarrhea, fever, chills. She also continues to report abdominal pain, endorses vomiting on day prior to coming to ED, last BM yesterday like marbles but formed , denies feeling constipated. Multiple recent visits here, on 09/19 here for chest pain, s/p rituxan infusion 09/13 (which she states causes respiratory sx at baseline) and then took a flight from [place] on the next day. Chest CTA on 09/19 negative for any significant abnormalities, CTA abdomen and pelvis negative for any significant abnormalities. She was discharged home, however while at home she noted in her EMR that the imaging stated left lower lobe consolidation , she called on 09/20 to report this finding and was given a Z-hima for PNA. Returns on 09/21 for worsening chest pain and whole body cramping with episodes of diaphoresis. Given IV morphine, toradol, and bronchodilator with reported improvement, CXR showed no acute airspace disease and she was treated for CAP, given 1 x 1000mg ceftriaxone and rx for cefpodozime in addition to the Z-hima previously rx and discharged home. Returns on 10/11 for stabbing lower abdominal pain that is worsening and stabbing, she endorsed nausea and hard stools, is tolerating PO intake. Given levofloxacin, and metronidazole, zofran and morphine 15mg tab #12, and to continue previously rx medications. Plan is to admit patient for pneumonia and possible diverticulitis. Review of Systems Review of Systems: Yes all other systems are reviewed and are negative Constitutional: Constitutional: Reports malaise and Reports poor appetite ENT: Reports system reviewed and no additional complaints, except as documented and Reports dizziness Cardiovascular: Cardiovascular: Reports chest pain (on inspiration) and Reports dyspnea on exertion Respiratory: Respiratory: Reports cough and Reports dyspnea on exertion Gastrointestinal: Gastrointestinal: Reports abdominal pain, Reports GI cramping and Reports nausea Genitourinary: Genitourinary: Reports urinary urgency and Reports vaginal pruritus Musculoskeletal: Musculoskeletal: Reports as per HPI Integumentary/Breasts: Skin/Breast: Reports system reviewed and no additional complaints, except as docu Neurologic: Reports system reviewed and no additional complaints, except as documented and Reports dizziness Endocrine: Endocrine: Reports as per HPI [facility] Medical History (Updated 10/16/24 @ 13:44 by Vicki Caro NP) Lung nodule Colon polyps Gastroparesis Pre-diabetes Ovarian cyst Rotator cuff arthropathy of left shoulder Anxiety GERD (gastroesophageal reflux disease) Diverticulitis Pertinent family history: Father-prostate cancer and CAD Mother - pre-skin cancer Surgical History (Updated 10/16/24 @ 13:43 by Vicki Caro NP) H/O unilateral oophorectomy Tubal ligation status History of appendectomy Social History (Updated 10/16/24 @ 13:44 by Vicki Caro NP) Alcohol intake: never Comment: ocassional Patient Tobacco Use Status: Former Tobacco user Smoked in Last 30 Days: Yes Use of substances other than those prescribed or required for medical reasons: No Advance Directives: No Advance Directives Information Provided: No Do you have a plan to hurt others: No Plan Nutrition Risks: No Nutritional Risk Patient : No Meds Allergies Allergy/AdvReac Type Severity Reaction Status Date / Time Gadolinium-Containing Allergy Unknown Verified 10/15/24 14:51 Contrast Medi latex Allergy Unknown Verified 10/15/24 14:51 Home Medications ?Medication ?Instructions ?Recorded ?Confirmed ?Last Taken ?Type Culturelle 1 cap PO DAILY 10/16/24 10/16/24 Unknown History alprazolam 0.5 mg tablet 0.5 mg PO DAILY PRN Anxiety 10/16/24 10/16/24 Unknown History calcium carbonate 1,000 mg PO DAILY 10/16/24 10/16/24 Unknown History cholecalciferol (vitamin D3) 125 125 mcg PO DAILY 10/16/24 10/16/24 Unknown History mcg (5,000 unit) tablet (Vitamin D3) lumateperone 42 mg capsule 42 mg PO BEDTIME 10/16/24 10/16/24 Unknown History (Caplyta) magnesium citrate 400 mg PO DAILY 10/16/24 10/16/24 Unknown History omeprazole 20 mg capsule,delayed 20 mg PO DAILY@1730 10/16/24 10/16/24 Unknown History release tirzepatide 5 mg/0.5 mL 5 mg subcut QWEEK 10/16/24 10/16/24 Unknown History subcutaneous pen injector (Alec) Physical Exam Vital Signs and Narrative: Vital Signs: Last Vital Signs Temp 98.0 F 10/16/24 10:20 Pulse 102 H 10/16/24 10:20 Resp 14 10/16/24 10:20 BP 136/79 10/16/24 10:20 Pulse Ox 95 10/16/24 10:20 O2 Del Method Room Air 10/16/24 10:20 BMI result Body Mass Index 37.6 Appearing in no acute distress head is normocephalic atraumatic eyes pupils are PERRLA sclera is anicteric mouth throat mucous membranes are intact and moist neck is supple no lymphadenopathy, no JVD noted lung sounds are clear to auscultation heart regular rate rhythm, clear S1, S2 positive bowel sounds, abdomen is soft, tender to upper left quadrant neuro patient is alert x3, no focal deficits Const: General: cooperative, healthy appearing, alert, awake and Physically active Nutritional Appearance: well nourished Orientation/consciousness: patient oriented x3 Limitations: no limitations HEENT: Head: Yes normal to inspection Eyes: General: appearance normal, both eyes and all related structures Pupils: Equal, round and reactive pupils present EOM: EOMs intact bilaterally Neck: Yes normal visual inspection, Yes full ROM, Yes no lymphadenopathy, Yes trachea midline and Yes supple Chest: Chest palpation & inspection: normal inspection of the chest Resp: Effort & Inspection: normal respiratory effort, able to speak in complete sentences and Actively coughing Auscultation: clear to auscultation bilaterally and diminished lung sounds on the left Cardio: Jugular venous distension: no JVD Rate: regular rate Rhythm: regular rhythm Heart sounds: S1 normal heart sound present and S2 normal heart sound present GI: Inspection: Yes normal to inspection Palpation (GI): Tenderness to palpation present (GI) Percussion: Yes normal to percussion Auscultation: normal bowel sounds : General: Yes no CVA tenderness Back/Spine/Pelvis: Back: no CVA tenderness Skin: General skin exam: no rashes or lesions noted Neuro: General: patient oriented x3 Cranial nerves: Yes CN's II-XII intact bilaterally, Yes Equal, round and reactive pupils present and Yes Bilaterally intact EOM present Extrem: General: Yes normal to inspection, Yes full ROM and Yes capillary refill normal Psych: Appearance: grossly normal Results Labs 10/15/24 15:36 10/15/24 15:36 Labs: Laboratory Results - last 24 hr 10/15/24 10/15/24 10/15/24 15:36 22:59 23:54 MCV 84.8 MCH 29.5 MCHC 34.7 RDW 13.0 Plt Count 446 H MPV 9.1 L Immature Gran % (Auto) 0.5 H Neut % (Auto) 64.2 Lymph % (Auto) 23.2 Tillman % (Auto) 10.4 Eos % (Auto) 1.2 Baso % (Auto) 0.5 Lymph # (Auto) 1.8 Tillman # (Auto) 0.8 Eos # (Auto) 0.1 Baso # (Auto) 0.0 Abs Immat Gran (auto) 0.04 H Absolute Neuts (auto) 5.0 Absolute Nucleated RBC 0.000 Nucleated RBC % (auto) 0.0 PT 13.0 H INR 1.1 APTT 38.0 H Anion Gap 17 Estim Creat Clear Calc 83.6 Estimated GFR > 60 Random Glucose 86 Lactic Acid 0.7 Calcium 10.5 H D Total Bilirubin 0.4 AST 30 ALT 23 Alkaline Phosphatase 73 Troponin I High Sens < 2.7 < 2.7 B-Natriuretic Peptide < 10 Total Protein 7.3 Albumin 4.5 Influenza Type A (PCR) Influenza Type B (PCR) RSV RNA Qual (PCR) SARS-CoV-2 RNA (RT-PCR) 10/16/24 01:00 MCV MCH MCHC RDW Plt Count MPV Immature Gran % (Auto) Neut % (Auto) Lymph % (Auto) Tillman % (Auto) Eos % (Auto) Baso % (Auto) Lymph # (Auto) Tillman # (Auto) Eos # (Auto) Baso # (Auto) Abs Immat Gran (auto) Absolute Neuts (auto) Absolute Nucleated RBC Nucleated RBC % (auto) PT INR APTT Anion Gap Estim Creat Clear Calc Estimated GFR Random Glucose Lactic Acid Calcium Total Bilirubin AST ALT Alkaline Phosphatase Troponin I High Sens B-Natriuretic Peptide Total Protein Albumin Influenza Type A (PCR) NEGATIVE Influenza Type B (PCR) NEGATIVE RSV RNA Qual (PCR) NEGATIVE SARS-CoV-2 RNA (RT-PCR) NEGATIVE Imaging Radiologist's Impressions: Impressions Chest X-Ray 10/15/24 16:30 IMPRESSION: There is a patchy opacity involving the left mid and lower lung likely representing pneumonia. Electronically signed by: Rosas Franklin DO 10/15/2024 09:35 PM EST RP Abdomen/Pelvis CT 10/16/24 00:28 IMPRESSION: Overall improved with the persistent acute to subacute inflammatory process without peritoneal fluid collection or pneumoperitoneum/extraluminal gas. Fleischner guidelines were followed. Electronically signed by: Devan Ashton MD 10/16/2024 07:56 AM EST RP Chest CTA 10/16/24 00:28 IMPRESSION: *CT pulmonary angiogram negative for pulmonary emboli. *Multifocal, predominantly scattered peribronchial consolidation within the left upper and left lower pulmonary lobe suspicious for pneumonia. *Single 4 mm right middle lobe pulmonary nodule. According to the UPDATED 2017 Fleischner Society recommendations, the advised follow-up imaging for solid nodules <6 mm in the middle/lower lobes is no routine follow up. *Moderate scattered coronary artery calcific atherosclerosis. VTE: negative Electronically signed by: Sean Clement MD 10/16/2024 04:06 AM EST RP Assessment and Plan (1) Acute diverticulitis: Status: Acute (2) Multifocal pneumonia: Status: Acute Plan 53-year-old woman admitted with chest pain and abdominal pain possibly diverticulitis Chest pain secondary to Multifocal pneumonia Zosyn given in the ER, will continue with Rocephin and azithromycin Continue supplemental oxygenation, 02 sat goal >92% EKG with no ischemic changes noted, trop negative CTA chest negative for PE, showing LL/ANGÉLICA lobe multifocal consolidation suspicious for PNA, 4mm nodule no routine follow up recommendations can follow outpatient Acute diverticulitis CT abdomen showing overall improvement with persistent acute to subacute inflammatory process Failed outpatient treatment Continue Rocephin Antiemetics as needed IV pepcid Pain medication as needed Clear liquid diet GI consult pending Constipation MiraLax and Colace Anxiety Continue home medications GERD Continue PPI FAVIO CPAP from home Prediabetes 2 hold mounjaro DVT prophylaxis with heparin Full code Quality Stroke Does the patient have a stroke diagnosis?: No VTE Prior VTE?: No VTE Risk Level:: Medical - moderate - high VTE Device Contraindication: Treatment Not Indicated VTE Drug Contraindication: N/A - Med Ordered
--- NOTE | 2024-10-16 12:19 | PC.NURSE ---
aaron salazar sent to Vicki CHANEL for request of pain medication
--- NOTE | 2024-10-16 12:41 | PM.GICN ---
History of Present Illness Data of Consult Service Date: 10/16/24 Requesting physician: Reshma Joiner Primary Care Provider: Unknown Physician HPI Reason for consult: diverticulitis 53 yr old f with hx of rheumatoid arthritis refractory to standard treatments and on Rituxan infusions, diverticulitis, appendectomy and asthma who I am seeing for assessment for diverticulitis. Patient initiallly came in with stabbing lower abdominal pain with nausea 10/[address] revealing diverticulitis so was sent home with levo and cefpodoxime. This pain improved and is very minimal now. She then came with SOB with dry cough but no fever and labs without raised WCC> She also endorses central chest pain which is pleuritic in nature and worse with breathing. She also noted black stools but no rectal bleeding-denies anti coagulation or nsaids her last colonoscopy was 10/20 in [place] where she lives and diverticulosis noted with few small polyps removed. She does say she has had x3 diverticulitis attacks over the years but usually in LUQ this attack was more in the LLQ. Imaging: Multifocal pneumonia left lung, Resolved diverticulitis. Labs: HGB 13, WCC nml --BC neg Review of Systems Review of Systems: Constitutional : No Weight loss, No Fever, No Chills ENT/Mouth : No sore throat, No Rhinorrhea Eyes: No Swelling, No Redness Cardiovascular : No Chest Pain, + SOB, No Edema Respiratory : + Cough, No Sputum, No Wheezing Gastrointestinal : see HPI Genitourinary : NO Dysuria, No Urinary Frequency, No Hematuria, No Urgency Musculoskeletal : + joint pain, No Myalgias, No Joint Swelling Skin : No Skin Lesions, No rash Neuro : No Weakness, No Numbness, No Dizziness, No Headache Psych : No Anxiety/Panic, No Depression Heme/Lymph: No Bruising, No Lymphadenopathy Endocrine : No Polyuria, No Polydipsia All other systems reviewed and are negative. [facility] Past Medical History Medical History (Updated 10/16/24 @ 13:44 by Vicki Caro NP) Lung nodule Colon polyps Gastroparesis Pre-diabetes Ovarian cyst Rotator cuff arthropathy of left shoulder Anxiety GERD (gastroesophageal reflux disease) Diverticulitis Family History Pertinent family history: FH of DM Surgical History Surgical History (Updated 10/16/24 @ 13:43 by Vicki Caro NP) H/O unilateral oophorectomy Tubal ligation status History of appendectomy Social History Social History (Updated 10/16/24 @ 13:44 by Vicki Caro NP) Household Members Other:: visiting mother in [place], pt. lives in [place] Do you presently have visiting nurse or other home services: No Alcohol intake: never Comment: ocassional Patient Tobacco Use Status: Former Tobacco user Smoked in Last 30 Days: No Use of substances other than those prescribed or required for medical reasons: No Have you been hit, kicked, punched, or otherwise hurt by someone within the past year? If so, by whom?: No Do you feel safe in your current relationship?: Yes Is there a partner from a previous relationship who is making you feel unsafe now?: No Are you made to feel afraid or neglected: No Advance Directives: No Advance Directives Information Provided: No Advance Directives on File: No Do you have a plan to hurt others: No Plan Recently lost weight without trying: No Nutrition Risks: No Nutritional Risk Patient : No : No Poor oral hygiene: No Meds Allergies Allergy/AdvReac Type Severity Reaction Status Date / Time Gadolinium-Containing Allergy Unknown Verified 10/15/24 14:51 Contrast Medi latex Allergy Unknown Verified 10/15/24 14:51 Active Medications: Current Medications Alprazolam (Alprazolam 0.5 Mg Tablet) 0.5 mg PO DAILY PRN PRN Reason: Anxiety Omeprazole (Omeprazole 20 Mg Capsule.) 20 mg PO DAILY@1730 [facility] Vitamin D (Cholecalciferol (Vitamin D3) 25 Mcg Tablet) 125 mcg PO DAILY [facility] Home Medications ?Medication ?Instructions ?Recorded ?Confirmed ?Last Taken ?Type Culturelle 1 cap PO DAILY 10/16/24 10/16/24 Unknown History alprazolam 0.5 mg tablet 0.5 mg PO DAILY PRN Anxiety 10/16/24 10/16/24 Unknown History calcium carbonate 1,000 mg PO DAILY 10/16/24 10/16/24 Unknown History cholecalciferol (vitamin D3) 125 125 mcg PO DAILY 10/16/24 10/16/24 Unknown History mcg (5,000 unit) tablet (Vitamin D3) lumateperone 42 mg capsule 42 mg PO BEDTIME 10/16/24 10/16/24 Unknown History (Caplyta) magnesium citrate 400 mg PO DAILY 10/16/24 10/16/24 Unknown History omeprazole 20 mg capsule,delayed 20 mg PO DAILY@1730 10/16/24 10/16/24 Unknown History release tirzepatide 5 mg/0.5 mL 5 mg subcut QWEEK 10/16/24 10/16/24 Unknown History subcutaneous pen injector (Alec) Physical Exam Vital Signs: Vital Signs: Last Vital Signs Temp 98.0 F 10/16/24 10:20 Pulse 108 H 10/16/24 12:27 Resp 19 10/16/24 12:27 BP 136/69 10/16/24 12:27 Pulse Ox 95 10/16/24 12:27 O2 Del Method Room Air 10/16/24 12:27 BMI result Body Mass Index 37.6 EXAM: GENERAL: The patient is well developed and nontoxic. VITAL SIGNS:see workflow HEENT: Nonicteric sclerae, PERRLA, EOMI. Oropharynx clear. Moist mucous membranes. Conjunctivae appear well perfused. No thyroid mass. CHEST: Chest wall is nontender. HEART: Regular rate and rhythm without murmurs. LUNGS: Clear to auscultation bilaterally. ABDOMEN: Soft, positive bowel sounds, nontender, no organomegaly.no flank tenderness SKIN: No rash, no excessive bruising, petechiae, or purpura. NEUROLOGIC: Cranial nerves II-XII intact without motor/sensory deficit. Psych: normal affect Results Labs 10/15/24 15:36 10/15/24 15:36 Labs: Short CBC 10/15/24 Range/Units 15:36 WBC 7.8 (4.8-10.8) X10*3/uL Hgb 13.2 (12.0-16.0) g/dl Hct 38.0 (37.0-47.0) % Plt Count 446 H (160-400) X10*3/uL BMP 10/15/24 15:36 Sodium 137 Potassium 4.3 Chloride 104 Carbon Dioxide 20 L BUN 16 Creatinine 0.87 Calcium 10.5 H D Liver Function 10/15/24 Range/Units 15:36 Total Bilirubin 0.4 (0.0-1.0) mg/dL AST 30 (5-31) U/L ALT 23 (0-31) U/L Alkaline Phosphatase 73 (39-117) U/L Albumin 4.5 (3.5-5.0) g/dL Imaging CT scan - chest: Attestation: I personally reviewed and interpreted this imaging study as follows: (multifocal pneumonia, left lung) Assessment and Plan (1) Acute diverticulitis: Status: Acute Plan 1/ Diverticulitis resolved now has pneumonia and being treated, has powerful immune suppression with rituximab which could have predisposed-per her hx she has had x3 prior attacks of diverticulitis in the past and has had colonoscopy in the recent past PLAN: 1/ From GI point of view no action for the diverticulitis, if HGB trends down significantly then can consider EGD given her description of dark stools, Procedures Date of Service Date of Service: 10/16/24
--- NOTE | 2024-10-16 14:10 | PC.NURSE ---
informed Vicki CHANEL of pts discomfort and sensitivity to azithromycin from this AM.
[2024-10-16] MEDS: Ketorolac Tromethamine 15 MG/ML VIAL IVPUSH ×2 (14:12→21:31)
[2024-10-16] MEDS: Heparin Sodium,Porcine 5,000 UNIT/ML VIAL 5000 UNIT SUBCUT (14:12)
[2024-10-16] MEDS: Morphine Sulfate 2 MG/ML CARTRIDGE 1 MG IVPUSH (14:13)
[2024-10-16] MEDS: cefTRIAXone sodium 1 GM VIAL IVPUSH (14:14)
[2024-10-16] MEDS: polyethylene glycoL 3350 17 GM POWD.PACK PO (14:14)
[2024-10-16] MEDS: Famotidine/PF 20 MG/2 ML VIAL IVPUSH ×2 (14:20→21:20)
[2024-10-16] MEDS: Acetaminophen 325 MG TABLET 650 MG PO (17:32)
[2024-10-16] MEDS: Omeprazole 20 MG CAPSULE.DR PO (17:32)
[2024-10-16] MEDS: 0.9 % Sodium Chloride Flush 3 ML SYRINGE IVFLUSH ×2 (17:32→21:20)
[2024-10-16] MEDS: LUMATEPERONE 42 MG 1 EACH PO (21:20)
[2024-10-16] MEDS: Docusate Sodium 100 MG CAPSULE PO (21:20)
[2024-10-17] VITALS (7 sets, daily range): BP systolic 106–137; BP diastolic 51–68; PULSE 72–86; RESP 16–24; TEMP 36.4–36.9; O2SAT 97–99
[2024-10-17] MEDS: Heparin Sodium,Porcine 5,000 UNIT/ML VIAL 5000 UNIT SUBCUT ×3 (01:24→23:22)
[2024-10-17] MEDS: Azithromycin 500 MG in 0.9 % Sodium Chloride 250 ML 125 MG IV (05:43)
[2024-10-17] MEDS: Ketorolac Tromethamine 15 MG/ML VIAL IVPUSH ×2 (06:26→13:02)
[2024-10-17] MEDS: Morphine Sulfate 2 MG/ML CARTRIDGE 1 MG IVPUSH ×3 (06:48→23:13)
[2024-10-17 07:00] LABS: Hemoglobin 11.3 g/dl (12.0-16.0); Mean Corpuscular HGB Conc 34.2 g/dl (31.0-35.0); Mean Corpuscular Volume 84.8 fL (80.0-98.0); Mean Platelet Volume 9.5 fL (9.4-12.3); Platelet Count 467 X10*3/uL (160-400); Red Blood Count 3.89 X10*6/uL (4.20-5.50); Red Cell Distribution Width 13.2 % (11.0-16.0)
[2024-10-17 07:06] LABS: Anion Gap 14 (12-20); Blood Urea Nitrogen 12 mg/dL (9-16); Carbon Dioxide 19 mmol/L (22-29); Chloride 108 mmol/L (96-108); Creatinine Clr Calc Pharmacy 109.1; Estimated Glomerular Filt Rate > 60; Glucose Random 97 mg/dL (60-115); Potassium 3.9 mmol/L (3.3-5.1); Sodium 137 mmol/L (135-145)
--- NOTE | 2024-10-17 07:42 | HO.PM.IMPN ---
Subjective Subjective Date of Service: 10/17/24 Review of Systems Follow up Pneumonia felt better resp medrano had allergy reaction to azithromycin Physical Exam Vital Signs: Vital Signs: Last Vital Signs Temp 96.8 F 10/16/24 20:00 Pulse 95 10/16/24 20:00 Resp 16 10/16/24 20:00 BP 140/79 H 10/16/24 20:00 Pulse Ox 95 10/16/24 20:00 O2 Del Method Room Air 10/16/24 20:00 BMI result Body Mass Index 36.9 Appearing in no acute distress lung sounds are clear to auscultation heart regular rate rhythm, clear S1, S2 positive bowel sounds, abdomen is soft, nontender neuro patient is alert x3, no focal deficits Objective Data Active Medications Acetaminophen (Acetaminophen 325 Mg Tablet) 650 mg PO Q6H PRN PRN Reason: Pain, Mild (Pain Scale 1-3), fever or headache Last Admin: 10/16/24 17:32 Dose: 650 mg Documented By: LEELA Alprazolam (Alprazolam 0.5 Mg Tablet) 0.5 mg PO DAILY PRN PRN Reason: Anxiety Calcium Carbonate (Calcium Carbonate 750 Mg Tab.Chew) 750 mg PO Q4H PRN PRN Reason: Heartburn Ceftriaxone Sodium (Ceftriaxone Sodium 1 Gm Vial) 1 gm IVPUSH Q24H [facility] Last Admin: 10/16/24 14:14 Dose: 1 gm Documented By: NIKKIE Docusate Sodium (Docusate Sodium 100 Mg Capsule) 100 mg PO BID [facility] Last Admin: 10/16/24 21:20 Dose: 100 mg Documented By: SP Famotidine (Famotidine/Pf 20 Mg/2 Ml Vial) 20 mg IVPUSH BID [facility] Last Admin: 10/16/24 21:20 Dose: 20 mg Documented By: SP Heparin Sodium (Porcine) (Heparin Sodium,Porcine 5,000 Unit/Ml Vial) 5,000 unit SUBCUT Q12H [facility] Last Admin: 10/17/24 01:24 Dose: 5,000 unit Documented By: SP Azithromycin 500 mg/ Sodium (Chloride) 250 mls @ 125 mls/hr IV Q24H [facility] Last Admin: 10/17/24 05:43 Dose: 125 mls/hr Documented By: SP Ketorolac Tromethamine (Ketorolac Tromethamine 15 Mg/Ml Vial) 15 mg IVPUSH Q6H PRN PRN Reason: Pain, Moderate(Pain Scale 4-6) Stop: 10/21/24 13:35 Last Admin: 10/17/24 06:26 Dose: 15 mg Documented By: SP Magnesium Hydroxide (Milk Of Magnesia 30 Ml Oral.Susp) 30 ml PO DAILY PRN PRN Reason: Constipation Melatonin (Melatonin 3 Mg Tablet) 6 mg PO BEDTIME PRN PRN Reason: Insomnia Morphine Sulfate (Morphine Sulfate 2 Mg/Ml Cartridge) 1 mg IVPUSH Q4H PRN; Protocol PRN Reason: Pain, Severe (Pain Scale 7-10) Last Admin: 10/17/24 06:48 Dose: 1 mg Documented By: SP Patient Own Medication ( Lumateperone [ Caplyta] 42 Mg) 1 each PO BEDTIME [facility] Last Admin: 10/16/24 21:20 Dose: 1 each Documented By: SP Omeprazole (Omeprazole 20 Mg Capsule.Dr) 20 mg PO DAILY@1730 [facility] Last Admin: 10/16/24 17:32 Dose: 20 mg Documented By: AMAIRANIAMER Polyethylene Glycol (Polyethylene Glycol 3350 17 Gm Powd.Pack) 17 gm PO DAILY [facility] Last Admin: 10/16/24 14:14 Dose: 17 gm Documented By: NIKKIE Sodium Chloride (0.9 % Sodium Chloride Flush 3 Ml Syringe) 3 ml IVFLUSH QSHIFT [facility] Last Admin: 10/16/24 21:20 Dose: 3 ml Documented By: SP Vitamin D (Cholecalciferol (Vitamin D3) 25 Mcg Tablet) 125 mcg PO DAILY [facility] Labs 10/17/24 05:44 10/17/24 05:44 Labs: Laboratory Results - last 24 hr 10/17/24 05:44 MCV 84.8 MCH 29.0 MCHC 34.2 RDW 13.2 Plt Count 467 H MPV 9.5 Absolute Nucleated RBC 0.000 Nucleated RBC % (auto) 0.0 Anion Gap 14 Estim Creat Clear Calc 109.1 Estimated GFR > 60 Random Glucose 97 Calcium 9.0 D Assessment and Plan (1) Multifocal pneumonia: Status: Acute Plan 53-year-old woman admitted with chest pain and abdominal pain possibly diverticulitis Allergic reaction secondary to azithromycin red and flushed face, pain to right ac IV insertion site, sob(normal sat) No anaphylaxis Treated with IV Benadryl 25 mg, IV Pepcid, albuterol updraft Chest pain secondary to Multifocal pneumonia CTA chest negative for PE, showing LL/ANGÉLICA lobe multifocal consolidation suspicious for PNA, 4mm nodule no routine follow up recommendations can follow outpatient EKG with no ischemic changes noted, trop negative Continue supplemental oxygenation, 02 sat goal >92% Zosyn given in the ER, will continue with Rocephin, switched to doxycycline secondary to allergic reaction to azithromycin Acute diverticulitis. Resolved CT abdomen showing overall improvement with persistent acute to subacute inflammatory process Antiemetics as needed IV pepcid Pain medication as needed Clear liquid diet, advance as tolerated GI consult> no acute diverticulitis, no need for intervention Constipation MiraLax and Colace Anxiety Continue home medications GERD Continue PPI FAVIO CPAP from home Prediabetes 2 hold mounjaro DVT prophylaxis with heparin Attending Dr. Lewis Full code Quality Stroke Does the patient have a stroke diagnosis?: No VTE Prior VTE?: No VTE Risk Level:: Medical - moderate - high VTE Device Contraindication: Treatment Not Indicated VTE Drug Contraindication: N/A - Med Ordered
[2024-10-17] MEDS: Cholecalciferol (Vitamin D3) 25 MCG TABLET 125 MCG PO (08:14)
[2024-10-17] MEDS: polyethylene glycoL 3350 17 GM POWD.PACK PO (08:14)
[2024-10-17] MEDS: Docusate Sodium 100 MG CAPSULE PO (08:14)
--- NOTE | 2024-10-17 08:21 | PC.NURSE ---
Pt. is complaining of excruciating RFA pain, IV site, Azithromycin was still running, this Nurse stopped the antibiotic, take out IV line, area a little red and swollen, pt. requested ice and was applied. Provider notified.
[2024-10-17 08:50] LABS: Glucose, Whole Blood 101 mg/dL (60-115)
[2024-10-17] MEDS: diphenhydrAMINE HCL 50 MG/ML VIAL 25 MG IVPUSH (08:50)
[2024-10-17] MEDS: Albuterol Sulfate (0.083%) 2.5 MG/3 ML VIAL.NEB INHALE (08:54)
[2024-10-17] MEDS: ALPRAZolam 0.5 MG TABLET PO (08:54)
[2024-10-17] MEDS: Famotidine/PF 20 MG/2 ML VIAL IVPUSH ×2 (09:44→23:13)
--- NOTE | 2024-10-17 10:44 | MHC.CM.PN ---
PT LIVES IN [place] SHE WAS HERE VISITNG HER MOM WHO LIVES IN [place] SHE PLANS ON RETRUNING TO [place] BEFORE DC PLAN HOME TO MOTHERS HOUSE NO SERVIES
[2024-10-17] MEDS: Doxycycline Hyclate 100 MG in 0.9 % Sodium Chloride 250 ML 166.67 MG IV ×2 (12:59→23:20)
[2024-10-17] MEDS: cefTRIAXone sodium 1 GM VIAL IVPUSH (14:49)
[2024-10-17] MEDS: 0.9 % Sodium Chloride Flush 3 ML SYRINGE IVFLUSH ×2 (15:00→23:12)
[2024-10-17] MEDS: LUMATEPERONE 42 MG 1 EACH PO (21:00)
[2024-10-17] MEDS: guaiFENesin LA 600 MG TAB.ER.12H PO (21:00)
[2024-10-18] MEDS: Benzonatate 100 MG CAPSULE PO ×3 (05:27→20:51)
[2024-10-18] MEDS: Morphine Sulfate 2 MG/ML CARTRIDGE 1 MG IVPUSH (05:31)
[2024-10-18 07:19] VITALS: BP 122/62; PULSE 81; RESP 18; TEMP 36.2; O2SAT 94
[2024-10-18 07:55] LABS: Hematocrit 32.4 % (37.0-47.0); Hemoglobin 11.2 g/dl (12.0-16.0); Mean Corpuscular HGB Conc 34.6 g/dl (31.0-35.0); Mean Corpuscular Hemoglobin 29.3 pg (27.0-33.0); Mean Corpuscular Volume 84.8 fL (80.0-98.0); Mean Platelet Volume 9.1 fL (9.4-12.3); Platelet Count 370 X10*3/uL (160-400); Red Blood Count 3.82 X10*6/uL (4.20-5.50); Red Cell Distribution Width 13.3 % (11.0-16.0); White Blood Count 5.9 X10*3/uL (4.8-10.8)
[2024-10-18] MEDS: 0.9 % Sodium Chloride Flush 3 ML SYRINGE IVFLUSH ×3 (08:35→20:54)
[2024-10-18] MEDS: Cholecalciferol (Vitamin D3) 25 MCG TABLET 125 MCG PO (08:35)
[2024-10-18] MEDS: Docusate Sodium 100 MG CAPSULE PO (08:36)
[2024-10-18] MEDS: Ketorolac Tromethamine 15 MG/ML VIAL IVPUSH ×3 (08:37→20:52)
[2024-10-18] MEDS: Famotidine/PF 20 MG/2 ML VIAL IVPUSH (08:37)
[2024-10-18] MEDS: polyethylene glycoL 3350 17 GM POWD.PACK PO (08:38)
[2024-10-18 11:05] LABS: Glucose, Whole Blood 105 mg/dL (60-115)
[2024-10-18] MEDS: Heparin Sodium,Porcine 5,000 UNIT/ML VIAL 5000 UNIT SUBCUT (12:41)
[2024-10-18] MEDS: Doxycycline Monohydrate 100 MG CAPSULE PO ×2 (12:52→20:51)
[2024-10-18 15:02] VITALS: BP 124/68; PULSE 79; RESP 18; TEMP 36.4; O2SAT 94
--- NOTE | 2024-10-18 16:15 | HO.PM.IMPN ---
Subjective Subjective Date of Service: 10/18/24 Interval History: seen and examined this morning follow up for pneumonia off o2 but reporting sob some cramping abdominal pain Review of Systems Review of Systems: Yes all other systems are reviewed and are negative Constitutional Constitutional: Denies chills and Denies fever(s) Cardiovascular Cardiovascular: Denies chest pain, Denies palpitations and Reports dyspnea Respiratory Respiratory: Reports cough and Reports dyspnea Endocrine Endocrine: Denies palpitations Physical Exam Vital Signs: Vital Signs: Last Vital Signs Temp 97.5 F 10/18/24 15:02 Pulse 79 10/18/24 15:02 Resp 18 10/18/24 15:02 BP 124/68 10/18/24 15:02 Pulse Ox 94 10/18/24 15:02 O2 Del Method Room Air 10/18/24 15:02 Oxygen Flow Rate 2 10/17/24 19:35 BMI result Body Mass Index 36.9 Const: General: cooperative, no acute distress, alert and awake Nutritional Appearance: obese Orientation/consciousness: patient oriented x3 Resp: Effort & Inspection: normal respiratory effort, able to speak in complete sentences, no respiratory distress and no use of accessory muscles Cardio: Rate: regular rate GI: Inspection: No distended Palpation (GI): Soft to palpation Neuro: General: patient oriented x3, moves all extremities and CN's II-XI intact bilaterally Extrem: General: Yes no pedal edema Objective Data Active Medications Acetaminophen (Acetaminophen 325 Mg Tablet) 650 mg PO Q6H PRN PRN Reason: Pain, Mild (Pain Scale 1-3), fever or headache Last Admin: 10/16/24 17:32 Dose: 650 mg Documented By: LEELA Alprazolam (Alprazolam 0.5 Mg Tablet) 0.5 mg PO DAILY PRN PRN Reason: Anxiety Last Admin: 10/17/24 08:54 Dose: 0.5 mg Documented By: LEELA Benzonatate (Benzonatate 100 Mg Capsule) 100 mg PO TID PRN PRN Reason: Cough Last Admin: 10/18/24 12:53 Dose: 100 mg Documented By: ALEC Calcium Carbonate (Calcium Carbonate 750 Mg Tab.Chew) 750 mg PO Q4H PRN PRN Reason: Heartburn Cefuroxime Axetil (Cefuroxime Axetil 500 Mg Tablet) 500 mg PO BID BROCK Docusate Sodium (Docusate Sodium 100 Mg Capsule) 100 mg PO BID ON LICENSE OF [facility] Last Admin: 10/18/24 08:36 Dose: 100 mg Documented By: ALEC Doxycycline Monohydrate (Doxycycline Monohydrate 100 Mg Capsule) 100 mg PO BID ON LICENSE OF [facility] Last Admin: 10/18/24 12:52 Dose: 100 mg Documented By: ALEC Glucose (Glucose Gel 15 Gm Gel..Gram.) 15 gm PO Q15M PRN; Protocol PRN Reason: per Hypoglycemia Standing Ord. Guaifenesin (Guaifenesin La 600 Mg Tab.Er.12h) 600 mg PO BID ON LICENSE OF [facility] Last Admin: 10/18/24 09:24 Dose: Not Given Documented By: ALEC Non-Admin Reason: Patient Refused Heparin Sodium (Porcine) (Heparin Sodium,Porcine 5,000 Unit/Ml Vial) 5,000 unit SUBCUT Q12H ON LICENSE OF [facility] Last Admin: 10/18/24 12:41 Dose: 5,000 unit Documented By: ALEC Dextrose (D10) 250 mls @ 750 mls/hr IV Q15M PRN; Protocol PRN Reason: per Hypoglycemia Standing Ord. Ketorolac Tromethamine (Ketorolac Tromethamine 15 Mg/Ml Vial) 15 mg IVPUSH Q6H PRN PRN Reason: Pain, Moderate(Pain Scale 4-6) Stop: 10/21/24 13:35 Last Admin: 10/18/24 15:09 Dose: 15 mg Documented By: ALEC Magnesium Hydroxide (Milk Of Magnesia 30 Ml Oral.Susp) 30 ml PO DAILY PRN PRN Reason: Constipation Melatonin (Melatonin 3 Mg Tablet) 6 mg PO BEDTIME PRN PRN Reason: Insomnia Morphine Sulfate (Morphine Sulfate 2 Mg/Ml Cartridge) 1 mg IVPUSH Q4H PRN; Protocol PRN Reason: Pain, Severe (Pain Scale 7-10) Last Admin: 10/18/24 05:31 Dose: 1 mg Documented By: BEVERLY Patient Own Medication ( Lumateperone [ Caplyta] 42 Mg) 1 each PO BEDTIME ON LICENSE OF [facility] Last Admin: 10/17/24 21:00 Dose: 1 each Documented By: BEVERLY Polyethylene Glycol (Polyethylene Glycol 3350 17 Gm Powd.Pack) 17 gm PO DAILY ON LICENSE OF [facility] Last Admin: 10/18/24 08:38 Dose: 17 gm Documented By: ALEC Sodium Chloride (0.9 % Sodium Chloride Flush 3 Ml Syringe) 3 ml IVFLUSH QSHIFT ON LICENSE OF [facility] Last Admin: 10/18/24 08:35 Dose: 3 ml Documented By: ALEC Vitamin D (Cholecalciferol (Vitamin D3) 25 Mcg Tablet) 125 mcg PO DAILY ON LICENSE OF [facility] Last Admin: 10/18/24 08:35 Dose: 125 mcg Documented By: ALEC Labs 10/18/24 07:47 10/17/24 05:44 Labs: Laboratory Results - last 24 hr 10/18/24 10/18/24 07:47 11:01 MCV 84.8 MCH 29.3 MCHC 34.6 RDW 13.3 Plt Count 370 MPV 9.1 L Absolute Nucleated RBC 0.000 Nucleated RBC % (auto) 0.0 POC Glucose 105 Assessment and Plan (1) Multifocal pneumonia: Status: Acute Plan 53-year-old woman admitted with chest pain and abdominal pain possibly diverticulitis Allergic reaction secondary to azithromycin red and flushed face, pain to right ac IV insertion site, sob(normal sat) No anaphylaxis Treated with IV Benadryl 25 mg, IV Pepcid, albuterol updraft Chest pain secondary to Multifocal pneumonia CTA chest negative for PE, showing LL/ANGÉLICA lobe multifocal consolidation suspicious for PNA, 4mm nodule no routine follow up recommendations can follow outpatient afebrile, no leukocytosis EKG with no ischemic changes noted, trop negative weaned off of o2 will continue with Rocephin, switched to doxycycline secondary to allergic reaction to azithromycin Acute diverticulitis. Resolved CT abdomen showing overall improvement with persistent acute to subacute inflammatory process GI consult> no acute diverticulitis, no need for intervention diet advanced, tolerating regular diet Constipation MiraLax and Colace Anxiety Continue home medications GERD Continue PPI FAVIO CPAP QHS Prediabetes 2 hold mounjaro DVT prophylaxis with heparin Attending Dr. Lewis Full code Quality Stroke Does the patient have a stroke diagnosis?: No VTE Prior VTE?: No VTE Risk Level:: Medical - moderate - high VTE Device Contraindication: Treatment Not Indicated VTE Drug Contraindication: N/A - Med Ordered
[2024-10-18 16:17] LABS: Glucose, Whole Blood 100 mg/dL (60-115)
[2024-10-18 19:51] VITALS: BP 133/82; PULSE 72; RESP 18; TEMP 36.9; O2SAT 96
[2024-10-18 20:03] LABS: Glucose, Whole Blood 105 mg/dL (60-115)
[2024-10-18] MEDS: cefuroxime axetiL 500 MG TABLET PO (20:51)
[2024-10-18] MEDS: Melatonin 3 MG TABLET 6 MG PO (20:51)
[2024-10-18] MEDS: LUMATEPERONE 42 MG 1 EACH PO (20:54)
[2024-10-19 03:07] VITALS: BP 133/60; PULSE 71; RESP 18; TEMP 36.2; O2SAT 94
[2024-10-19 07:26] VITALS: BP 125/64; PULSE 75; RESP 16; TEMP 36.4; O2SAT 95
[2024-10-19 07:32] LABS: Glucose, Whole Blood 87 mg/dL (60-115)
[2024-10-19] MEDS: Cholecalciferol (Vitamin D3) 25 MCG TABLET 125 MCG PO (08:25)
[2024-10-19] MEDS: Ketorolac Tromethamine 15 MG/ML VIAL IVPUSH (08:25)
[2024-10-19] MEDS: cefuroxime axetiL 500 MG TABLET PO (08:26)
[2024-10-19] MEDS: Doxycycline Monohydrate 100 MG CAPSULE PO (08:26)
[2024-10-19] MEDS: 0.9 % Sodium Chloride Flush 3 ML SYRINGE IVFLUSH (08:28)
[2024-10-19] MEDS: Benzonatate 100 MG CAPSULE PO (08:35)
--- NOTE | 2024-10-19 10:51 | P.DS_ITS ---
DS: Providers Provider Date of Service: 10/19/24 Date of admission: 10/16/24 11:24 Date of discharge: 10/19/24 Primary care physician: Unknown Physician Consults: 10/16/24 11:27 Consult to Gastroenterology Routine Consulting Provider: Chad Camarillo Reason for consultation: abd pain Attending physician on discharge: Rohit Lewis Discharging clinician: Rocio Rodney DS: Diagnosis Discharge Diagnosis (1) Multifocal pneumonia: Status: Acute DS: Summary Hospital Course Hospital Course: From H&P on the day of admission 53 year old female with PMH significant for rheumatoid arthritis, immunocompromised on Rituxan infusions, last infusion 09/13/24), diverticulitis, appendectomy. Presenting with abdominal and chest valerie n. She had had increasing chest pain with inspiration. No other acute changes reported. She denied nausea, vomiting, diarrhea, fever, chills. She also continues to report abdominal pain, endorses vomiting on day prior to coming to ED, last BM yesterday like marbles but formed , denies feeling constipated. Multiple recent visits here, on 09/19 here for chest pain, s/p rituxan infusion 09/13 (which she states causes respiratory sx at baseline) and then took a flight from [place] on the next day. Chest CTA on 09/19 negative for any significant abnormalities, CTA abdomen and pelvis negative for any significant abnormalities. She was discharged home, however while at home she noted in her EMR that the imaging stated left lower lobe consolidation , she called on 09/20 to report this finding and was given a Z-hima for PNA. Returns on 09/21 for worsening chest pain and whole body cramping with episodes of diaphoresis. Given IV morphine, toradol, and bronchodilator with reported improvement, CXR showed no acute airspace disease and she was treated for CAP, given 1 x 1000mg ceftriaxone and rx for cefpodozime in addition to the Z-hima previously rx and discharged home. Returns on 10/11 for stabbing lower abdominal pain that is worsening and stabbing, she endorsed nausea and hard stools, is tolerating PO intake. Given levofloxacin, and metronidazole, zofran and morphine 15mg tab #1 2, and to continue previously rx medications. Plan is to admit patient for pneumonia and possible diverticulitis. Allergic reaction secondary to azithromycin red and flushed face, pain to right ac IV insertion site, sob(normal sat) No anaphylaxis Treated with IV Benadryl 25 mg, IV Pepcid, albuterol updraft Chest pain secondary to Multifocal pneumonia CTA chest negative for PE, showing LL/ANGÉLICA lobe multifocal consolidation suspicious for PNA, 4mm nodule no routine follow up recommendations can follow outpatient afebrile, no leukocytosis. EKG with no ischemic changes noted, trop negative weaned off of o2. Treated with Rocephin and azithromycin. She had flushed face and some pain in the AC IV site as well as sob with azithromycin but no hypoxia or wheezing. For this reason she was switched to doxycycline which she tolerated well. she has been off oxygen for >48 hours and able to ambulate comfortably. has remained afebrile, with no leukocytosis and now stable for discharge home. Acute diverticulitis. Resolved CT abdomen showing overall improvement with persistent acute to subacute inflammatory process GI consult> no acute diverticulitis, no need for intervention. diet advanced, tolerating regular diet Time Attestation Discharge Coordination Time (in mins): 36 Quality: Safe Use of Opioids Does Pt have an Active Cancer Diagnosis on the Problem List?: No Quality: Stroke Does the patient have a stroke diagnosis?: No Physical Exam Vital Signs: Vital Signs: Last Vital Signs Temp 97.6 F 10/19/24 07:26 Pulse 75 10/19/24 07:26 Resp 16 10/19/24 07:26 BP 125/64 10/19/24 07:26 Pulse Ox 95 10/19/24 07:26 O2 Del Method Room Air 10/19/24 07:26 O2 Flow Rate 2 10/19/24 03:07 Oxygen Flow Rate 2 10/17/24 19:35 BMI result Body Mass Index 36.9 Const: General: cooperative, no acute distress, alert and awake Nutritional Appearance: obese Orientation/consciousness: patient oriented x3 Resp: Effort & Inspection: normal respiratory effort, able to speak in complete sentences, no respiratory distress and no use of accessory muscles Cardio: Rate: regular rate GI: Inspection: No distended Palpation (GI): Soft to palpation Neuro: General: patient oriented x3, moves all extremities and CN's II-XI intact bilaterally Extrem: General: Yes no pedal edema DS: Data Data Completed and Pending Labs on day of discharge: Laboratory Results - last 24 hr 10/18/24 10/18/24 10/18/24 11:01 16:09 19:58 POC Glucose 105 100 105 10/19/24 07:28 POC Glucose 87 Discharge Plan Discharge Anticipated Discharge Date/Time: 10/19/24 11:32 Patient Disposition: Home, Self-Care Discharge Diagnosis: pneumonia Referrals: Physician,Unknown J [Primary Care Provider] - 1 Week Discharge Medications: New cefuroxime axetil 500 mg Tablet 500 mg PO BID 3 Days Qty: 6 0RF doxycycline monohydrate 100 mg Capsule 100 mg PO BID 3 Days Qty: 6 0RF benzonatate 100 mg capsule 100 mg PO TID PRN (Reason: cough) Qty: 30 0RF Continued cyclobenzaprine 10 mg tablet 10 mg PO Q12H PRN (Reason: muscle spasm) Qty: 10 0RF morphine 15 mg tablet 15 mg PO Q6H PRN (Reason: pain) Qty: 12 0RF Rx Instructions: partial fill okay; Partial Fill upon patient request. ondansetron 4 mg tablet,disintegrating 4 mg PO Q8H PRN (Reason: nausea and vomiting) Qty: 20 0RF Caplyta 42 mg capsule 42 mg PO BEDTIME Culturelle capsule 1 cap PO DAILY magnesium citrate gel 400 mg PO DAILY alprazolam 0.5 mg tablet 0.5 mg PO DAILY PRN (Reason: Anxiety) Mounjaro 5 mg/0.5 mL pen injector 5 mg subcut QWEEK calcium carbonate 500 mg calcium (1,250 mg) Tablet 1,000 mg PO DAILY omeprazole 20 mg Capsule,Delayed Release(Dr/Ec) 20 mg PO DAILY@1730 cholecalciferol (vitamin D3) [Vitamin D3] 125 mcg (5,000 unit) Tablet 125 mcg PO DAILY Discontinued cefpodoxime 200 mg tablet 200 mg PO BID Qty: 12 0RF Rx Instructions: must administer with a meal/food levofloxacin 750 mg tablet 750 mg PO DAILY Qty: 9 0RF Discharge Orders: Discharge Order (Routine); Ordered 10/19/24 Ordered By: Rocio Rodney Activity on Discharge: As tolerated Stand Alone Forms: Patient Portal Discharge page, Work/School Release Print Language: Maltese Care Plan Goals: see below Health Concerns: pneumonia diverticultitis - resolved. can advance to regular high fiber diet Plan of Treatment: Complete course of antibiotics as described incidental finding: FYI - Single 4 mm right middle lobe pulmonary nodule. According to the UPDATED 2017 Fleischner Society recommendations, the advised follow-up imaging for solid nodules <6 mm in the middle/lower lobes is no routine follow up. required call to schedule follow up appointment with PCP when you return home Assessment: see discharge summary
[2024-10-19 11:24] LABS: Glucose, Whole Blood 97 mg/dL (60-115)
[2024-10-19] MEDS: Heparin Sodium,Porcine 5,000 UNIT/ML VIAL 5000 UNIT SUBCUT (12:09)
--- NOTE | 2024-10-19 12:29 | MHC.CM.PN ---
PT WILL DC HOME TODAY WITH NO SERVICES VIA PRIVATE TRANSPORT
== END 2024-10-19 12:29 | disposition home or self-care (01) | DRG 194 ==
LOC: HO.ED 10-16 08:35 → HO.EDOVER 10-16 11:27 → HO.S3 10-16 13:57
PROVIDERS: Physician Assistant; Admitting Provider Nurse Practitioner Acute Care; Emergency Provider Emergency Medicine Emergency Medical Services; Visit Provider Physician Assistant Medical
DX: J18.9 Pneumonia, unspecified organism (principal); D84.821 Immunodeficiency due to drugs; R23.2 Flushing; F41.9 Anxiety disorder, unspecified; T36.3X5A Adverse effect of macrolides, initial encounter; K59.00 Constipation, unspecified; G47.33 Obstructive sleep apnea (adult) (pediatric); R73.03 Prediabetes; M06.9 Rheumatoid arthritis, unspecified; Z20.822 Contact with and (suspected) exposure to COVID-19; Z79.620 Long term (current) use of immunosuppressive biologic; Z79.899 Other long term (current) drug therapy
CPT/HCPCS: 0241U; 36415; 71045; 71275; 74177; 80048; 80053; 82947; 83605; 83880; 84484; 85025; 85027; 85610; 85730; 93005; 94640; 99285; J0456; J0696; J1171; J1200; J1644; J1885; J2270; J2405; J2543; J2919; Q9967

== ENCOUNTER → 2024-10-15 14:40 | Outpatient (BNV) | payer OTHER, SELFPAY | PROVIDERS: Visit Provider Internal Medicine Cardiovascular Disease | DX: R07.9 Chest pain, unspecified (principal) | CPT/HCPCS: 93010 ==

== ENCOUNTER → 2024-10-16 11:24 | Outpatient (BNV) | payer OTHER, SELFPAY | PROVIDERS: Admitting Provider Nurse Practitioner Acute Care; Emergency Provider Emergency Medicine Emergency Medical Services; Visit Provider Internal Medicine Gastroenterology | DX: K57.92 Diverticulitis of intestine, part unspecified, without perforation or abscess without bleeding (principal) | CPT/HCPCS: 99222 ==

== ENCOUNTER → 2024-10-16 11:24 | Outpatient (BNV) | payer OTHER, SELFPAY | PROVIDERS: Admitting Provider Nurse Practitioner Acute Care; Emergency Provider Emergency Medicine Emergency Medical Services; Visit Provider Nurse Practitioner Acute Care | DX: J18.9 Pneumonia, unspecified organism (principal) | CPT/HCPCS: 99223; 99232; 99239 ==

== ENCOUNTER → 2024-10-16 | Outpatient (BNV) | payer OTHER, SELFPAY | PROVIDERS: Emergency Provider Emergency Medicine Emergency Medical Services; Visit Provider Radiology Diagnostic Radiology | DX: R65.11 Systemic inflammatory response syndrome (SIRS) of non-infectious origin with acute organ dysfunction (principal) | CPT/HCPCS: 74177 ==